=== PATIENT | male | born 1970 ===

== ENCOUNTER 2020-07-30 10:08 | Emergency (ER) | payer OTHER, SELFPAY ==
[2020-07-30 11:10] VITALS: BP 148/108; PULSE 94; RESP 16; TEMP 36.8; O2SAT 97; BMI 27.1
--- NOTE | 2020-07-30 11:20 | XR_ITS ---
EXAMINATION: XR CHEST CLINICAL INFORMATION: Shortness of breath at night. COMPARISON: None TECHNIQUE: Frontal view of the chest was obtained. FINDINGS: The lungs are clear. The cardiomediastinal silhouette is normal in size. There is no pleural effusion or pneumothorax. No acute osseous abnormality. XR/XR chest 1V IMPRESSION: No acute cardiopulmonary findings.
--- NOTE | 2020-07-30 11:42 | ED_ITS ---
HPI - General Adult General Chief complaint: General Medical Stated complaint: stuffy nose Time Seen by Provider: 07/30/20 11:20 Source: patient Mode of arrival: ambulatory History of Present Illness HPI narrative: 49-year-old male with a past medical history of hypertension presenting to the ED complaining of sinus congestion, ear pressure, and SOB at night worsening over the past 4 days. Reports shortness breath at night x years, is supposed to have CPAP machine however lost insurance and has been unable to get another appointment with PCP. Admits now has insurance again and has appointment with PCP in 2 weeks. Denies cough, fever, chills, chest pain, recent travel, history blood clots Onset (ago): day(s) Related Data Previous Rx's Medication Instructions Recorded amlodipine 10 mg tablet 10 mg PO DAILY #30 tab 06/17/20 metoprolol succinate 25 mg 25 mg PO DAILY #30 tab 06/17/20 tablet,extended release 24 hr albuterol sulfate 2 puff INHALATION Q4-6H PRN #6.7 g 07/30/20 fluticasone propionate [Flonase 2 spray INTRANASAL DAILY #9.9 ml 07/30/20 Allergy Relief] Allergies Allergy/AdvReac Type Severity Reaction Status Date / Time No Known Allergies Allergy Verified 07/23/20 13:18 Review of Systems Review of Systems: Constitutional: No Weight loss, No Fever, No Chills ENT/Mouth: + Ear Pain, + Nasal Congestion, + Sinus Pain, No Hoarseness, No sore throat, No Rhinorrhea, No Swallowing Difficulty Cardiovascular: No Chest Pain, + SOB, +orthopnea Respiratory: No Cough, No Sputum, No Wheezing Musculoskeletal: No joint pain, No Myalgias, No Joint Swelling Skin: No Skin Lesions, No rash Yes all other systems are reviewed and are negative PMF Past Medical History Attestation statement: The following information was validated with the patient. Medical History (Updated 07/30/20 @ 11:51 by KAVITA Kinney) HTN (hypertension) Surgical History Status post excision of lipoma Family History Family History (Updated 07/23/20 @ 13:19 by SEE Wood) Father Stroke Mother Hypertension Social History Social History Advance Directives: No Advance Directives Information Provided: No Physical Exam Vital Signs: Vital Signs: Last Vital Signs Temp 98.2 F 07/30/20 11:10 Pulse 94 07/30/20 11:10 Resp 16 07/30/20 11:10 BP 148/108 H 07/30/20 11:10 Pulse Ox 97 07/30/20 11:10 Body Mass Index 27.1 Const: General: cooperative and healthy appearing Orientation/consciousness: patient oriented x3 Limitations: no limitations HENMT: Head: Yes normal to inspection Ears: hearing grossly normal bilaterally and TM's normal bilaterally General nose exam: Normal external nose present and Normal septum present Face and sinus: Yes normal facial exam, Yes sinuses nontender and Yes face symmetric Eyes: General: appearance normal, both eyes and all related structures EOM: EOMs intact bilaterally Neck: Neck: Yes normal visual inspection and Yes no meningeal signs Resp: Effort & Inspection: normal respiratory effort Auscultation: clear to auscultation bilaterally, no rales, no rhonchi and no wheezes Cardio: Rate: regular rate Heart sounds: S1 normal heart sound present and S2 normal heart sound present Skin: Rashes: no rashes Wounds: no wounds Neuro: General: patient oriented x3 and no meningeal signs Gait exam (Neuro): Normal gait present Extrem: General: Yes normal to inspection Course Course Course Narrative: * Chest x-ray unremarkable. Discussed with patient needs close follow-up with his PCP in need CPAP machine as this is likely cause of all of his symptoms. Medical Decision Making MDM Narrative Medical decision making narrative: On exam hypertensive, NAD/nontoxic appearing, lungs CTA. Concern for sleep apnea and noncompliance with CPAP due to insurance issues. TMs WNL. Will obtain chest x-ray, and discussed with patient at length need to follow-up with PCP Discharge Plan Discharge Clinical Impression: Apnea, sleep Qualifiers: Sleep apnea type: unspecified type Qualified Code(s): G47.30 - Sleep apnea, unspecified Patient Disposition: Home, Self-Care Instructions: Sleep Apnea (DC) Additional Instructions: Your x-ray was unremarkable today. Use albuterol inhaler at home for shortness of breath/wheezing. Flonase will help clear sinuses. You need to follow-up with her primary care doctor soon as possible, you need her CPAP machine. Follow-up with sleep medicine for sleep studies. If her symptoms persist or worsen you have chest pain, fever, cough return to the ED Tu radiograf?a hoy no tuvo nada especial. Use un inhalador de albuterol en casa para la dificultad para respirar / sibilancias. Flonase ayudar? a despejar los senos nasales. Necesita hacer un seguimiento con walker m?dico de atenci?n primaria lo antes posible, necesita walker m?quina CPAP. Seguimiento con medicamentos para dormir para estudios del mona?o. Si yoshi s?ntomas persisten o empeoran, tiene dolor en el pecho, robert, darell vuelve al servicio de urgencias Prescriptions: New fluticasone propionate [Flonase Allergy Relief] 50 mcg/actuation spray,suspension 2 spray intranasal DAILY Qty: 9.9 RF: 0 albuterol sulfate 90 mcg/actuation HFA aerosol inhaler 2 puff inhalation Q4-6H PRN (Reason: shortness of breath or wheezing) Qty: 6.7 RF: 0 No Action amlodipine 10 mg tablet 10 mg PO DAILY Qty: 30 RF: 5 metoprolol succinate 25 mg tablet extended release 24 hr 25 mg PO DAILY Qty: 30 RF: 5 Referrals: Delicia Younger MD [Physician] - 2 days Bree Walden FNP [Nurse Practitioner] - 2 days
== END 2020-07-30 12:19 | disposition home or self-care (01) ==
PROVIDERS: Emergency Provider Emergency Medicine Emergency Medical Services; PCP Internal Medicine
DX: G47.30 Sleep apnea, unspecified (principal); Z79.899 Other long term (current) drug therapy
CPT/HCPCS: 71045; 99283

== ENCOUNTER → 2020-08-26 09:40 | Outpatient (REF) | payer OTHER, SELFPAY ==
[2020-08-26 10:39] LABS: MANUAL DIFF FLAG NO
[2020-08-26 10:43] LABS: Basophils Absolute Auto 0.1 X10*3/uL (0.0-0.2); Basophils Percent Auto 0.7 % (0-2); Eosinophils Absolute Auto 0.2 X10*3/uL (0.0-0.4); Hematocrit 43.5 % (42-52); Hemoglobin 14.7 g/dl (14.0-18.0); Imm Gran Abs Auto 0.05 X10*3/uL (0.00-0.03); Imm Gran Pct Auto 0.7 % (0.0-0.4); Lymphocytes Absolute Auto 2.7 X10*3/uL (1.2-4.9); Lymphocytes Percent Auto 37.6 % (20-40); Mean Corpuscular HGB Conc 33.8 g/dl (31.0-36.0); Mean Corpuscular Hemoglobin 30.3 pg (27.0-33.0); Mean Corpuscular Volume 89.7 fL (80-98); Mean Platelet Volume 10.9 fL (9.4-12.4); Monocytes Absolute Auto 0.7 X10*3/uL (0.1-1.2); Monocytes Percent Auto 9.3 % (2-11); Neutrophils Absolute Auto 3.5 X10*3/uL (2.0-8.3); Neutrophils Percent Auto 48.7 % (45-73); Platelet Count 201 X10*3/uL (160-400); Red Blood Count 4.85 X10*6/uL (4.60-5.80); White Blood Count 7.1 X10*3/uL (4.8-10.8)
[2020-08-26 11:27] LABS: Alanine Aminotransferase 17 U/L (0-40); Albumin Level 4.5 g/dL (3.5-5.0); Alkaline Phosphatase 103 U/L (39-117); Anion Gap 12 (12-20); Aspartate Amino Transferase 22 U/L (5-37); Bilirubin Total 0.8 mg/dL (0.0-1.0); Blood Urea Nitrogen 11 mg/dL (9-16); Calcium 9.1 mg/dL (8.4-10.2); Carbon Dioxide 27 mmol/L (22-29); Chloride 105 mmol/L (96-108); Cholesterol 155 mg/dL; Estimated Glomerular Filt Rate > 60; Glucose Random 93 mg/dL (60-115); HDL Cholesterol 37 mg/dL; LDL Cholesterol Calculated 79 mg/dl; Sodium 140 mmol/L (135-145); Total Protein 7.8 g/dL (6.5-8.0); Triglycerides 196 mg/dL
[2020-08-26 11:34] LABS: Thyroid Stimulating Hormone 1.21 uIU/mL (0.32-4.0)
[2020-08-26 11:39] LABS: Folate 18.1 ng/mL (> or = 4.0); Vitamin B12 579 pg/mL (200-900)
[2020-08-26 12:00] LABS: Prostate Specific Antigen Scr 1.03 ng/mL (<0.05-4.0)
== END ==
LOC: HO.SL 09:40
PROVIDERS: PCP Internal Medicine; Visit Provider Internal Medicine
DX: G47.33 Obstructive sleep apnea (adult) (pediatric) (principal); E78.00 Pure hypercholesterolemia, unspecified; I10 Essential (primary) hypertension; R35.0 Frequency of micturition; N40.1 Benign prostatic hyperplasia with lower urinary tract symptoms
CPT/HCPCS: 36415; 80053; 80061; 82607; 82746; 84153; 84439; 84443; 85025; 95806

== ENCOUNTER 2020-09-06 09:08 | Outpatient (REF) | payer OTHER, SELFPAY ==
--- NOTE | 2020-09-09 09:44 | MHC.AU.P13 ---
Adult Audiological Evaluation Date of Visit: 09/06/20 Saxophone Player Used: Ivorian- In Person Reason for Appointment: Patient has long-standing history of tinnitus. He reports the tinnitus is particularly bothersome at nighttime. Per previous report, patient feels the tinnitus began after falling and hitting the back of his head as a child. There has also been history of migraines and headaches that seem to exacerbate the tinnitus. Patient had an audiological evaluation at this clinic on 11/15/2014, which revealed normal/mild sloping to moderately-severe sensorineural hearing loss bilaterally, with the right ear slightly worse than the left. He did not feel he was ready for amplification at that time. History of right tympanic membrane perforation from a cotton swab, which has since healed. Ear History: Recent Ear Drainage: None Reported Recent Ear Pain: None Reported Family History of Hearing Loss?: Yes History of Ear Wax Buildup: None Reported Bothersome Tinnitus/Ringing/Noises in Ears: Both Ears History of occupational noise exposure?: Yes Otoscopy: Right Ear: Unremarkable Left Ear: Unremarkable Tympanometry: Tympanometry performed due to: Prior history of tympanic membrane perforation Right Ear: Normal Middle Ear System (Type A) Left Ear: Normal Middle Ear System (Type A) Hearing Evaluation: Transducer(s) Used: Insert Earphones Method: Conventional Audiometry Stimuli Used: Pure Tones Right Ear: Description of Hearing: Mild sloping to severe sensorineural hearing loss Left Ear: Description of Hearing: Mild sloping to severe sensorineural hearing loss Speech Recognition Threshold (SRT): Method Used: Recorded Lists Stimuli Used: Right Ear: 45 dbHL Left Ear: 40 dBHL Word Discrimination: Method: Recorded Lists Word Lists Used: Lista Bisil?bica (Ivorian) Right Ear: 100% at 85 dBHL Left Ear: 100% at 80 dBHL Comparison: Compared to the most recent evaluation: Thresholds have decreased bilaterally. Recommendations: Audiological re-evaluation in one year. Trial with amplification is recommended. Medical clearance from a physician is required before fitting. Hearing Aid Fitting will be scheduled when all materials arrive. See Hearing Aid Evaluation report for more information. Diagnosis: Primary Diagnosis: H90.3 Bilateral Sensorineural Hearing Loss Services Performed: Services Performed: Comprehensive Audiological Evaluation (CPT 01150), Tympanometry (CPT 32051) Signature: Provider: Annel Zayas, [facility]
--- NOTE | 2020-09-09 09:45 | MHC.AU.P13 ---
Hearing Aid Evaluation- Binaural Date of Visit: 09/06/20 Aircraft Body Repairer Used: Maltese- In Person Description of Hearing: Mild to severe sensorineural hearing loss bilaterally, slightly worse in the right ear Additional Information: Patient's primary complaint is tinnitus. He has experienced tinnitus since childhood and finds it bothersome at times. Since his last evaluation in 2014, his thresholds have decreased. He feels he is ready to try amplification. Hearing Instrument Selection: Right Ear: Senior Sales Director: Phonak Model: Audeo P70-R Battery Size: Rechargeable Color: Black Phd Intern: 1M Left Ear: Senior Sales Director: Phonak Model: Audeo P7-R Battery Size: Rechargeable Color: Black Phd Intern: 1M Plan: Action Taken/Action Needed: Medical Clearance to be requested from PCP/ENT Hearing Fitting to be scheduled when materials arrive Diagnosis Code(s): Primary Diagnosis: H90.3 Bilateral Sensorineural Hearing Loss Signature: Provider: Annel Zayas, [facility]
--- NOTE | 2020-09-09 09:46 | MHC.AU.MED ---
Medical Clearance for Hearing Instrumentation Date: 09/09/20 Patient Name: Clive Mir Date of : 1970 Primary Care Provider: Referring Provider: Anabella Finch MD We have seen your patient on 09/06/20 and have determined that they are a candidate for amplification (See accompanying report). Specifically, they would benefit from: Hearing aid use in both ears There is a statute that addresses Medical Evaluation Requirements prior to fitting a patient with a hearing aid. According to [place] statute 265 CMR:6.03(1), (a) General. Except as provided in 265 CMR 6.03(1)(b), a fourdrinier machine operator shall not sell a hearing aid unless the prospective user has presented to the fourdrinier machine operator a written statement signed by a licensed physician that states that the patient's hearing loss has been medically evaluated and the patient may be considered a candidate for a hearing aid. The medical evaluation must have taken place within the preceding six months. Please note: Due to the [place] Statute referenced above, we cannot accept a signature other than that of a licensed physician. FILLER PICKER and PA signatures cannot be accepted. I am in agreement with the above recommendation. There is no medical contraindication for hearing instrumentation. Physician Signature Date Physician Name (Printed)
--- NOTE | 2020-09-09 09:48 | MHC.AU.P13 ---
Adult Audiological Evaluation Date of Visit: 09/06/20 Biztalk Consultant Used: Syrian- In Person Reason for Appointment: Patient has long-standing history of tinnitus. He reports the tinnitus is particularly bothersome at nighttime. Per previous report, patient feels the tinnitus began after falling and hitting the back of his head as a child. There has also been history of migraines and headaches that seem to exacerbate the tinnitus. Patient had an audiological evaluation at this clinic on 11/15/2014, which revealed normal/mild sloping to moderately-severe sensorineural hearing loss bilaterally, with the right ear slightly worse than the left. He did not feel he was ready for amplification at that time. History of right tympanic membrane perforation from a cotton swab, which has since healed. Ear History: Recent Ear Drainage: None Reported Recent Ear Pain: None Reported Family History of Hearing Loss?: Yes History of Ear Wax Buildup: None Reported Bothersome Tinnitus/Ringing/Noises in Ears: Both Ears History of occupational noise exposure?: Yes Otoscopy: Right Ear: Unremarkable Left Ear: Unremarkable Tympanometry: Tympanometry performed due to: Prior history of tympanic membrane perforation Right Ear: Normal Middle Ear System (Type A) Left Ear: Normal Middle Ear System (Type A) Hearing Evaluation: Transducer(s) Used: Insert Earphones Method: Conventional Audiometry Stimuli Used: Pure Tones Right Ear: Description of Hearing: Mild sloping to severe sensorineural hearing loss Left Ear: Description of Hearing: Mild sloping to severe sensorineural hearing loss Speech Recognition Threshold (SRT): Method Used: Recorded Lists Stimuli Used: Right Ear: 45 dbHL Left Ear: 40 dBHL Word Discrimination: Method: Recorded Lists Word Lists Used: Lista Bisil?bica (Syrian) Right Ear: 100% at 85 dBHL Left Ear: 100% at 80 dBHL Comparison: Compared to the most recent evaluation: Thresholds have decreased bilaterally. Recommendations: Audiological re-evaluation in one year. Trial with amplification is recommended. Medical clearance from a physician is required before fitting. Hearing Aid Fitting will be scheduled when all materials arrive. See Hearing Aid Evaluation report for more information. Diagnosis: Primary Diagnosis: H90.3 Bilateral Sensorineural Hearing Loss Services Performed: Services Performed: Comprehensive Audiological Evaluation (CPT 16547), Tympanometry (CPT 73107) Signature: Provider: Annel Zayas, [facility]
== END 2020-09-06 09:09 | disposition home or self-care (01) ==
LOC: HO.SH 09:08
PROVIDERS: Visit Provider Internal Medicine
DX: Z46.1 Encounter for fitting and adjustment of hearing aid (principal); H90.3 Sensorineural hearing loss, bilateral
CPT/HCPCS: 92557; 92567; 92591

== ENCOUNTER → 2020-09-10 14:28 | Outpatient (BNVA) | payer OTHER, SELFPAY | PROVIDERS: PCP Internal Medicine; Visit Provider Internal Medicine | DX: J30.9 Allergic rhinitis, unspecified (principal); J45.909 Unspecified asthma, uncomplicated; G47.33 Obstructive sleep apnea (adult) (pediatric) | CPT/HCPCS: 99202 ==

== ENCOUNTER → 2020-09-18 12:47 | Outpatient (BNVA) | payer OTHER, SELFPAY | PROVIDERS: PCP Internal Medicine; Visit Provider Physician Assistant ==

== ENCOUNTER → 2020-10-08 14:41 | Outpatient (BNVA) | payer OTHER, SELFPAY | PROVIDERS: PCP Internal Medicine; Visit Provider Internal Medicine | DX: J45.909 Unspecified asthma, uncomplicated (principal); G47.33 Obstructive sleep apnea (adult) (pediatric); Z79.51 Long term (current) use of inhaled steroids | CPT/HCPCS: 99212 ==

== ENCOUNTER 2020-10-11 14:17 | Outpatient (REF) | payer OTHER, SELFPAY ==
--- NOTE | 2020-10-14 09:02 | MHC.AU.HFA ---
Hearing Instrument Fitting- Adult- Binaural Date of Visit: 10/11/20 Bit Grinder Used: Syriac- By Phone (In-person spanish interpreter/translator was originally requested, but was unavailable at the time of the appointment) Hearing Instruments Dispensed: Right Ear: Rod And Tube Straightener: Phonak Model: Audeo P70-R Serial Number: [id number] Repair Warranty: 12/09/2023 Loss and Damage Warranty: 12/09/2023 Battery Size: Rechargeable Color: Black Wheel Mill Operator: 1M Type of Dome: Medium Vented Type of Wax Guard: CeruShield Left Ear: Rod And Tube Straightener: Phonak Model: Audeo P7-R Serial Number: [id number] RepairWarranty: 12/09/2023 Loss and Damage Warranty: 12/09/2023 Battery Size: Rechargeable Color: Black Wheel Mill Operator: 1M Type of Dome: Medium Vented Type of Wax Guard: CeruShield Summary of Fitting: Feedback applications manager was run. Verifit performed and levels adjusted to better reach thresholds. At first, [employer] had recommended a power dome on the right ear and vented dome on the left. Patient reported that the right ear sounded different, and more powerful, than the left, and adjustments did not seem to make a difference. Switched the right power dome for a vented dome, and patient reported significant improvement in sound. Target gain set to 90%, as patient felt 100% was too strong. Patient was pleased with the sound of the instruments. He also reported that he could hardly hear his tinnitus with the instruments on. In the future if tinnitus worsens, we can consider a tinnitus masking program, but for now, it was not needed. Hearing aid care and use were discussed and demonstrated. Hearing aids were paired to his phone. Recommendations: A hearing instrument follow-up was scheduled. Please call our clinic with any questions or concerns. Diagnosis Code(s): Primary Diagnosis: H90.3 Bilateral Sensorineural Hearing Loss Secondary Diagnosis: H93.13 Tinnitus, Bilateral Signature: Provider: Annel Zayas, [facility]
== END 2020-10-11 14:18 | disposition home or self-care (01) ==
LOC: HO.HAP 14:17
PROVIDERS: Visit Provider Internal Medicine
DX: Z46.1 Encounter for fitting and adjustment of hearing aid (principal); H90.3 Sensorineural hearing loss, bilateral; H93.13 Tinnitus, bilateral
CPT/HCPCS: V5011; V5020; V5160; V5261

== ENCOUNTER 2020-10-30 15:41 | Outpatient (REF) | payer OTHER, SELFPAY | END 2020-10-30 15:42 | disposition home or self-care (01) | LOC: HO.HAP 15:41 | PROVIDERS: Visit Provider Internal Medicine | DX: Z13.89 Encounter for screening for other disorder (principal) ==

== ENCOUNTER → 2020-11-12 15:41 | Outpatient (BNVA) | payer OTHER, SELFPAY | PROVIDERS: PCP Internal Medicine; Visit Provider Internal Medicine | DX: J45.20 Mild intermittent asthma, uncomplicated (principal); G47.33 Obstructive sleep apnea (adult) (pediatric); J30.9 Allergic rhinitis, unspecified; Z79.899 Other long term (current) drug therapy | CPT/HCPCS: 99212 ==

== ENCOUNTER 2020-11-20 07:46 | Day surgery (SDC) | payer OTHER, SELFPAY ==
[2020-11-12 09:21] VITALS: BMI 29.0
--- NOTE | 2020-11-19 10:15 | HO.ANESPROP2 ---
Documented by User: Mattie Everett 11/19/20 10:16 HPI - Anesthesia Eval Consult details Narrative: 49yo M for Colonoscopy PMFSH Active Problems Active Problems: All Active Problems (Updated 11/12/20 @ 16:17 by Danny De La Rosa MD) Annual physical exam (Acute) Tinnitus (Acute) Colon cancer screening (Acute) Allergic rhinitis (Acute) Asthma (Acute) Anxiety and depression (Acute) BPH (benign prostatic hyperplasia) (Acute) Obstructive sleep apnea (Acute) GERD (gastroesophageal reflux disease) (Acute) HTN (hypertension) (Acute) Past Medical History Medical History Anxiety and depression Asthma BPH (benign prostatic hyperplasia) COVID-19 vaccine administered Erectile dysfunction GERD (gastroesophageal reflux disease) HTN (hypertension) Obstructive sleep apnea Right renal stone Vitamin D deficiency Family History Family History Father Stroke Alcohol abuse Myocardial infarct Mother Hypertension Surgical History Surgical History Hx of lithotripsy Status post excision of lipoma Social History Social History Household Members: Significant Other Are you a primary senior care assistant to a significant other at home: No Do you presently have visiting nurse or other home services: No Alcohol intake: current Alcohol intake frequency: a few times a month Smoking Status: Never smoker Use of substances other than those prescribed or required for medical reasons: Yes Substance Use Type: Marijuana Are you DNR?: No Advance Directives Information Provided: No Recently lost weight without trying: No Eating poorly because of decreased appetite: No Nutrition Risks: No Nutritional Risk Current occupational status: unemployed Meds Allergies Allergy/AdvReac Type Severity Reaction Status Date / Time No Known Allergies Allergy Verified 11/20/20 08:35 Home Medications Medication Instructions Recorded Confirmed Last Taken Type blood pressure test kit-large #1 ea 09/10/20 11/04/20 Unknown History Exam Exam Date and Time: November 19, 2020 1015 Height,Weight and Vital Signs: Height 5 ft 11 in Weight 94.5 kg Assessment and Plan Assessment Anesthesia Assessment: Chart Reviewed Documented by User: Kasie Allenmayo 11/20/20 09:26 PMFSH Past Medical History Medical History Anxiety and depression Asthma BPH (benign prostatic hyperplasia) COVID-19 vaccine administered Erectile dysfunction GERD (gastroesophageal reflux disease) HTN (hypertension) Obstructive sleep apnea Right renal stone Vitamin D deficiency Family History Family History Father Stroke Alcohol abuse Myocardial infarct Mother Hypertension Surgical History Surgical History Hx of lithotripsy Status post excision of lipoma Social History Social History Household Members: Significant Other Are you a primary senior care assistant to a significant other at home: No Do you presently have visiting nurse or other home services: No Alcohol intake: current Alcohol intake frequency: a few times a month Smoking Status: Never smoker Use of substances other than those prescribed or required for medical reasons: Yes Substance Use Type: Marijuana Are you DNR?: No Advance Directives Information Provided: No Recently lost weight without trying: No Eating poorly because of decreased appetite: No Nutrition Risks: No Nutritional Risk Current occupational status: unemployed Meds Allergies Allergy/AdvReac Type Severity Reaction Status Date / Time No Known Allergies Allergy Verified 11/20/20 08:35 Home Medications Medication Instructions Recorded Confirmed Last Taken Type blood pressure test kit-large #1 ea 09/10/20 11/04/20 Unknown History Exam Airway Mallampati Class: II (Missing muliple) TM Dist: >3cm Neck ROM: Full Heart: RRR Lungs: CTA Assessment and Plan Assessment Anesthesia Assessment: Anesthesia Plan Discussed and Chart Reviewed Final Anesthetic Review NPO: Yes ASA Class: III Final Preanesthetic Review: No Changes in Pt Med Stat and Consent Obtained/Reviewed Patient Risk: Intermediate Procedure Risk: Intermediate Anesthetic Plan Anesthetic Plan: MAC: Disposition: Standard PACU
[2020-11-20 08:39] VITALS: BP 128/91; PULSE 93; RESP 20; TEMP 36.5; O2SAT 97
[2020-11-20] MEDS: Lactated Ringers 1,000 ML 100 ML IVCONT (08:50)
[2020-11-20] MEDS: Sodium Phosphate,Mono-Dibasic 133 ML ENEMA PR ×2 (08:51→09:02)
--- NOTE | 2020-11-20 08:56 | MHC.SHP ---
Pre-Procedural Eval Section B Chief Complaint: Screening Relevant Family History (Specify if Yes): No Relevant Social History: Other (specify) (THC) Present Medications: see Short Stay Collaborative assessment Medical History: Significant History (Anxiety and depression Asthma BPH (benign prostatic hyperplasia) COVID-19 vaccine administered Erectile dysfunction GERD (gastroesophageal reflux disease) HTN (hypertension) Obstructive sleep apnea Right renal stone Vitamin D deficiency) History of Previous Operations: Relevant previous surgery/procedure and date(s) (Hx of lithotripsy Status post excision of lipoma) Allergies: Allergies Allergy/AdvReac Type Severity Reaction Status Date / Time No Known Allergies Allergy Verified 11/20/20 08:35 Review of Systems Sugical H&P ROS: Negative: Constitution, Cardiovascular, Respiratory, Neurological, Psychiatric, Hem-Onc, Allergic/Immunologic, Gastrointestinal, Genitourinary, Musculoskeletal, Integumentary, Endocrine and Eyes/Ears/Nose/Throat Exam Surgical H&P Exam: Normal: HEENT, Normal: Heart, Normal: Lungs, Normal: Extremities, Normal: Abdomen, Normal: Skin and Normal: Neurological Plan Diagnosis/Plan: Unchanged I have reviewed the history and physical and performed a pertinent physical examination on my patient. No changes have occurred unless specified.
--- NOTE | 2020-11-20 08:58 | P.OP_ITS ---
Operative Note Operative Note Date of Service: 11/20/20 Narrative: Operative Information Procedure Description: Colonoscopy COLONOSCOPY Instrument: Olympus variable stiffness pediatric scope 190L Colonoscopy Monitoring: Vital signs and clinical assessment, continuous EKG monitoring, Pulse oximetry, Carbon Dioxide monitoring and blood pressure monitoring were done throughout the procedure. Colon withdrawal time was 6 minutes. Procedure: The patient was placed in the left lateral decubitis position and pre-procedure medications were administered. After a digital rectal examination of the ano-rectum, the video colonoscope was inserted into the rectum and advanced through the colon to the cecum/TI. The colonoscope was slowly withdrawn in a retrograde panoramic fashion and the colon mucosa was carefully examined including a retroflexed view of the rectum. Findings and interventions are described below. Procedure Difficulty:easy Findings: Terminal Ileum-normal Cecum:normal Ascending Colon: normal Transverse Colon -normal Descending Colon:normal Sigmoid Colon: moderate diverticulosis with small to mid sized diverticula seen Rectum: Retroflexion with moderate sized internal hemorrhoids, grade I Anorectum - normal Colon preparation: [place] Bowel Preparation Scale Right colon; 3 Transverse colon: 3 Left colon; 3 (0 = Unprepared colon segment with mucosa not seen due to solid stool that cannot be cleared. 1 = Portion of mucosa of the colon segment seen, but other areas of the colon segment not well seen due to staining, residual stool and/or opaque liquid. 2 = Minor amount of residual staining, small fragments of stool and/or opaque liquid, but mucosa of colon segment seen well. 3 = Entire mucosa of colon segment seen well with no residual staining, small fragments of stool or opaque liquid) Impression and Post Procedure Diagnosis: internal hemorrhoids diverticular disease Plan: High fiber diet leaflet Avoid straining at stool, epsom salts and sitz bath, anusol supps or cream Repeat Colonoscopy in 10 years or earlier if clinically indicated Above findings were reviewed with the patient and relevant handouts were provided if indicated.
--- NOTE | 2020-11-20 08:58 | PM.OP ---
Brief Operative Note Date of Service: 11/20/20 Pre-op diagnosis: colon screening Post-op diagnosis: same Procedure: see op note Surgeon: Robert Sparrow MD Anesthesia: MAC Was an Freelance Digital Project Manager used for this Procedure?: No Estimated blood loss (mL): 0 Condition: stable Disposition: PACU
[2020-11-20 09:40] VITALS: BP 130/96; PULSE 75; RESP 13; TEMP 36.1; O2SAT 98
[2020-11-20 09:55] VITALS: BP 142/107; PULSE 65; RESP 18; O2SAT 99
--- NOTE | 2020-11-20 16:22 | PC.NURSE ---
1000 AWAKE ALERT MYRA PO, PT STS WILL TAKE BP MEDS WHEN HE GETS HOME TAKES LISINOPRIL, MONITORS AND IVF DCD ASST OOB CH STEADY IV DCD DRESSED SELF AT BS CALL ETIENNE IN REACH
== END 2020-11-20 11:00 | disposition home or self-care (01) ==
PROVIDERS: PCP Internal Medicine; Visit Provider Internal Medicine Gastroenterology
PROC: 0DJD8ZZ Inspection of Lower Intestinal Tract, Via Natural or Artificial Opening Endoscopic (ICD-10-PCS; CPT 45378; principal; 2020-11-20 09:10)
DX: Z12.11 Encounter for screening for malignant neoplasm of colon (principal); K57.30 Diverticulosis of large intestine without perforation or abscess without bleeding; K64.0 First degree hemorrhoids; K21.9 Gastro-esophageal reflux disease without esophagitis; I10 Essential (primary) hypertension; J45.20 Mild intermittent asthma, uncomplicated; G47.33 Obstructive sleep apnea (adult) (pediatric); F12.90 Cannabis use, unspecified, uncomplicated; Z79.51 Long term (current) use of inhaled steroids; Z79.899 Other long term (current) drug therapy
CPT/HCPCS: 45378

== ENCOUNTER → 2021-01-15 15:43 | Outpatient (BNVA) | payer OTHER, SELFPAY | PROVIDERS: PCP Internal Medicine; Visit Provider Internal Medicine | DX: G47.33 Obstructive sleep apnea (adult) (pediatric) (principal); J45.20 Mild intermittent asthma, uncomplicated; J30.9 Allergic rhinitis, unspecified | CPT/HCPCS: 99212 ==

== ENCOUNTER → 2021-03-12 15:25 | Outpatient (BNVA) | payer OTHER, SELFPAY | PROVIDERS: PCP Internal Medicine; Visit Provider Internal Medicine | DX: J30.9 Allergic rhinitis, unspecified (principal); J45.20 Mild intermittent asthma, uncomplicated; G47.33 Obstructive sleep apnea (adult) (pediatric); I10 Essential (primary) hypertension; E55.9 Vitamin D deficiency, unspecified | CPT/HCPCS: 99212 ==

== ENCOUNTER 2021-09-04 08:19 | Outpatient (REF) | payer OTHER, SELFPAY ==
[2021-09-04 08:46] LABS: MANUAL DIFF FLAG NO
[2021-09-04 09:50] LABS: Basophils Percent Auto 0.7 % (0-2); Eosinophils Absolute Auto 0.2 X10*3/uL (0.0-0.4); Hematocrit 40.8 % (42.0-52.0); Hemoglobin 13.4 g/dl (14.0-18.0); Imm Gran Abs Auto 0.01 X10*3/uL (0.00-0.03); Imm Gran Pct Auto 0.2 % (0.0-0.4); Lymphocytes Absolute Auto 2.3 X10*3/uL (1.2-4.9); Lymphocytes Percent Auto 39.2 % (20-40); Mean Corpuscular HGB Conc 32.8 g/dl (31.0-36.0); Mean Corpuscular Hemoglobin 30.5 pg (27.0-33.0); Mean Corpuscular Volume 92.9 fL (80.0-98.0); Mean Platelet Volume 11.3 fL (9.4-12.4); Monocytes Absolute Auto 0.6 X10*3/uL (0.1-1.2); Monocytes Percent Auto 10.1 % (2-11); Neutrophils Absolute Auto 2.7 x10*3/uL (2.0-8.3); Neutrophils Percent Auto 45.8 % (45-73); Platelet Count 182 X10*3/uL (160-400); Red Blood Count 4.39 X10*6/uL (4.60-5.80); Red Cell Distribution Width 13.4 % (11.0-16.0); White Blood Count 5.9 X10*3/uL (4.8-10.8)
[2021-09-04 10:14] LABS: Appearance Urine CLEAR; Color Urine YELLOW; Glucose Urine UA NEG (NEG); Leukocyte Esterase Urine NEG (NEG); Nitrite Urine NEG (NEG); Specific Gravity - Urine >= 1.030 (1.005-1.025); Urine Blood NEG (NEG); Urine Ketones NEG (NEG); Urine Protein NEG (NEG-TRACE)
[2021-09-04 10:27] LABS: Alanine Aminotransferase 18 U/L (0-40); Albumin Level 4.3 g/dL (3.5-5.0); Alkaline Phosphatase 93 U/L (39-117); Anion Gap 11 (12-20); Aspartate Amino Transferase 25 U/L (5-37); Bilirubin Total 0.5 mg/dL (0.0-1.0); Blood Urea Nitrogen 16 mg/dL (9-16); Calcium 9.3 mg/dL (8.4-10.2); Carbon Dioxide 28 mmol/L (22-29); Chloride 107 mmol/L (96-108); Cholesterol 160 mg/dL; Estimated Glomerular Filt Rate > 60; Glucose Random 90 mg/dL (60-115); HDL Cholesterol 39 mg/dL; LDL Cholesterol Calculated 99 mg/dl; Potassium 4.3 mmol/L (3.3-5.1); Sodium 142 mmol/L (135-145); Total Protein 7.5 g/dL (6.5-8.0); Triglycerides 111 mg/dL
[2021-09-04 10:51] LABS: Folate 18.9 ng/mL (> or = 4.0); Free T4 (Free Thyroxine) 0.96 ng/dL (0.71-1.85); Prostate Specific Antigen Scr 0.73 ng/mL (<0.05-4.0); Thyroid Stimulating Hormone 1.08 uIU/mL (0.32-4.0); Vitamin B12 593 pg/mL (200-900)
[2021-09-04 11:43] LABS: RBC Urine 0-2 /HPF (0); WBC Urine 0-2 /HPF (0-4)
[2021-09-04 11:44] LABS: Squamous Epithelial Cell Urine TRACE /LPF
== END 2021-09-04 08:20 | disposition home or self-care (01) ==
LOC: HO.LAB 08:19
PROVIDERS: PCP Internal Medicine; Visit Provider Internal Medicine
DX: Z12.5 Encounter for screening for malignant neoplasm of prostate (principal); R35.0 Frequency of micturition; K21.9 Gastro-esophageal reflux disease without esophagitis; E78.00 Pure hypercholesterolemia, unspecified
CPT/HCPCS: 36415; 80053; 80061; 81001; 82607; 82746; 84153; 84439; 84443; 85025

== ENCOUNTER 2022-06-02 15:38 | Outpatient (REF) | payer OTHER, SELFPAY ==
--- NOTE | ~2022-06-02 | US_ITS ---
EXAMINATION: US PELVIS LIMITED (BLADDER) CLINICAL INFORMATION: Increased frequency of urination. COMPARISON: X-ray [facility] 06/28/2018 and 12/28/2017. Renal ultrasound 07/18/2015. CT abdomen and pelvis 06/28/2015. TECHNIQUE: Real-time imaging of the bladder. FINDINGS: BLADDER: Well distended and normal. Bilateral ureteral jets are demonstrated. Prevoid bladder volume is 164 mL. Postvoid bladder volume is 44 mL. ADDITIONAL FINDINGS: Prostate is normal in size at 23.7 mL. US/US bladder IMPRESSION: Normal-appearing bladder with 44 mL postvoid residual.
== END 2022-06-02 15:39 | disposition home or self-care (01) ==
LOC: HO.US 15:38
PROVIDERS: Visit Provider Internal Medicine
DX: R35.0 Frequency of micturition (principal)
CPT/HCPCS: 76857

== ENCOUNTER 2022-10-15 07:51 | Outpatient (REF) | payer OTHER, SELFPAY ==
[2022-10-15 08:00] LABS: MANUAL DIFF FLAG NO
[2022-10-15 08:18] LABS: Basophils Absolute Auto 0.1 X10*3/uL (0.0-0.2); Eosinophils Absolute Auto 0.2 X10*3/uL (0.0-0.4); Eosinophils Percent Auto 4.1 % (0-4); Hematocrit 44.2 % (42.0-52.0); Hemoglobin 14.9 g/dl (14.0-18.0); Imm Gran Abs Auto 0.02 X10*3/uL (0.00-0.03); Imm Gran Pct Auto 0.3 % (0.0-0.4); Immature Retic Fraction 10.8 % (2.3-13.4); Lymphocytes Absolute Auto 2.8 X10*3/uL (1.2-4.9); Lymphocytes Percent Auto 46.8 % (20-40); Mean Corpuscular HGB Conc 33.7 g/dl (31.0-36.0); Mean Corpuscular Hemoglobin 30.8 pg (27.0-33.0); Mean Corpuscular Volume 91.5 fL (80.0-98.0); Mean Platelet Volume 10.4 fL (9.4-12.4); Monocytes Absolute Auto 0.7 X10*3/uL (0.1-1.2); Monocytes Percent Auto 12.3 % (2-11); Neutrophils Absolute Auto 2.1 x10*3/uL (2.0-8.3); Neutrophils Percent Auto 35.5 % (45-73); Platelet Count 177 X10*3/uL (160-400); Red Blood Count 4.83 X10*6/uL (4.60-5.80); Red Cell Distribution Width 12.6 % (11.0-16.0); Retic HGB Equivalent 36.3 pg (30.0-35.0); Reticulocyte Percent 1.6 % (0.5-1.8); Reticulocytes Absolute 0.078 X10*6/uL (0.026-0.095); White Blood Count 5.9 X10*3/uL (4.8-10.8)
[2022-10-15 08:49] LABS: Alanine Aminotransferase 17 U/L (0-40); Albumin Level 4.3 g/dL (3.5-5.0); Alkaline Phosphatase 107 U/L (39-117); Anion Gap 13 (12-20); Aspartate Amino Transferase 25 U/L (5-37); Bilirubin Total 0.6 mg/dL (0.0-1.0); Blood Urea Nitrogen 13 mg/dL (9-16); Calcium 9.3 mg/dL (8.4-10.2); Carbon Dioxide 28 mmol/L (22-29); Chloride 104 mmol/L (96-108); Cholesterol 156 mg/dL; Estimated Glomerular Filt Rate > 60; Glucose Random 105 mg/dL (60-115); HDL Cholesterol 33 mg/dL; Iron 90 mcg/dL (45-160); LDL Cholesterol Calculated 73 mg/dl; Percent Iron Saturation 30 % (15-50); Potassium 4.3 mmol/L (3.3-5.1); Sodium 141 mmol/L (135-145); Total Iron Binding Capacity 298 mcg/dL (228-428); Total Protein 7.4 g/dL (6.5-8.0); Triglycerides 251 mg/dL; Unsaturated Iron Binding 208 ug/dL
[2022-10-15 09:11] LABS: Ferritin 113 ng/mL (20-250); Free T4 (Free Thyroxine) 1.03 ng/dL (0.71-1.85); Prostate Specific Antigen Scr 1.08 ng/mL (<0.05-4.0); Thyroid Stimulating Hormone 1.13 uIU/mL (0.32-4.0)
== END 2022-10-15 07:52 | disposition home or self-care (01) ==
LOC: HO.LAB 07:51
PROVIDERS: PCP Internal Medicine; Visit Provider Internal Medicine
DX: Z12.5 Encounter for screening for malignant neoplasm of prostate (principal); D64.9 Anemia, unspecified; E78.00 Pure hypercholesterolemia, unspecified; I10 Essential (primary) hypertension
CPT/HCPCS: 36415; 80053; 80061; 82728; 83540; 84153; 84439; 84443; 85025; 85045

== ENCOUNTER 2023-02-08 16:53 | Outpatient (AMB) | payer OTHER, SELFPAY ==
[2023-02-08 16:54] VITALS: BP 120/88; PULSE 97; O2SAT 96; BMI 28.8
--- NOTE | 2023-02-08 16:54 | MHC.PC.OV ---
Vital Signs 02/08/23 16:54 Height 5 ft 11 in Weight 206 lb 4 oz BMI 28.8 BP 120/88 Blood Pressure Location Lt brachial Position Sitting Pulse 97 Pulse Source Pulse Oximeter Pulse Oximetry (%) 96 Oxygen Delivery Method Room Air Intake Visit Reasons: 6m F/U Prescription Eyeglass Maker Required: Yes Accompanied by: Self / Same As Patient Allergies No Known Allergies Allergy (Verified 02/08/23 16:54) Medication List - Last Reconciled 02/08/23 by Anabella Finch MD amlodipine 10 mg PO DAILY [AUTO PAP 6-16 cm H2) humidified Air As directed] blood pressure test kit-large As directed clotrimazole 1% 1 appl topical BID 4 weeks hydrochlorothiazide 12.5 mg PO QAM 90 days metoprolol succinate ER 50 mg PO DAILY 90 days omeprazole 20 mg PO DAILY Tobacco use date assessed: 02/08/23 Dental Screening Dental Screen Date: 02/08/23 Did you have a dental visit in the last 12 months?: No Did you have a dental problem in the last 6 months where you did not have access to dental care?: No Was dental information given to patient?: No HPI 6m F/U HPI Details 52-year-old overweight male with hypertension BPH hypercholesterolemia GERD and impaired glucose tolerance last seen in October 2022 patient is here for follow-up. Colonoscopy is up-to-date patient has obstructive sleep apnea and up-to-date has not received any CPAP. Granted that he had noncompliance before but has since then ask for CPAP. Will try to follow this up. Patient also has a growth on the left leg that has been changing meaning increase in size and has been referred to dermatology but has not had any schedule. Will follow-up on this [facility] Medical History (Updated 02/08/23 @ 17:06 by Anabella Finch MD) Asthma Colon cancer screening COVID-19 vaccine administered Erectile dysfunction GERD (gastroesophageal reflux disease) HTN (hypertension) Obstructive sleep apnea Right renal stone Vitamin D deficiency Surgical History Hx of lithotripsy Status post excision of lipoma Family History Father Stroke Alcohol abuse Myocardial infarct Mother Hypertension Sister Myocardial infarct Social History (Updated 08/11/22 @ 16:40 by Anabella Finch MD) Household Members: Significant Other Housing: Apartment Are you a primary care asst to a significant other at home: No Do you presently have visiting nurse or other home services: No Alcohol intake: current Alcohol intake frequency: a few times a month Patient Tobacco Use Status: Never used Tobacco Years Smoked: marijuana e-Cigarette/Vaping Use: Never Used Second Hand Smoke Exposure: No Substance Use Type: Marijuana Current occupational status: employed Cognitive needs: No Hearing needs: Yes Vision needs: No Questionnaire PHQ-9 Over the last 2 weeks, how often have you been bothered by any of the following problems? 1. Little interest or pleasure in doing things: several days (Mother recently. Going to see the body today. ) 2. Feeling down, depressed, or hopeless: several days 3. Trouble falling or staying asleep, or sleeping too much: not at all 4. Feeling tired or having little energy: not at all 5. Poor appetite or overeating: not at all 6. Feeling bad about yourself - or that you are a failure or have let yourself or your family down: not at all 7. Trouble concentrating on things, such as reading the newspaper or watching television: not at all 8. Moving or speaking so slowly that other people could have noticed. Or the opposite - being so fidgety or restless that you have been moving around a lot more than usual: not at all 9. Thoughts that you would be better off or of hurting yourself in some way: not at all Total score: 2 Depression Screening Interpretation: Positive Source: Developed by Drs. Reynaldo Mcghee, Ivone Gill, Hans Rosado and colleagues, with an educational lamar from [employer]. Thrive Questionnaire Date Thrive assessed: 02/08/23 I am a: Patient What is your living situation today?: I have a steady place to live Within the past 12 months, did the food you bought not last and you didn't have the money to get more?: Never true Within the past 12 months, did you worry whether your food would run out before you got money to buy more?: Never true Do you have trouble paying for medicines?: No Do you have trouble getting transportation to medical appointments?: No Do you have trouble paying your heating and electricity bill?: No Do you have trouble taking care of your child, family member or friend?: No Do you have trouble with day-to-day activities such as bathing, preparing meals, shopping, managing finances, etc.?: No Are you currently unemployed and looking for a job?: No Are you interested in more education?: No Please select the resources that you would like help with: None Currently or been in a relationship where the following occur: no concerns reported AUDIT C Alcohol Use Questionnaire (AUDIT-C) 1. How often do you have a drink containing alcohol?: 2-3 times a week 2. How many drinks containing alcohol do you have on a typical day when you are drinking?: 3 or 4 3. How often do you have six or more drinks on one occasion?: Less than monthly Total Score: 5 DASHA-7 AMB Questionnaire DASHA-7 Date DASHA - 7 assessed: 02/08/23 Feeling nervous, anxious, or on edge: 0 = Not at all Not being able to stop or control worryin = Not at all Worrying too much about different things: 0 = Not at all Trouble relaxin = Not at all Being so restless that it is hard to sit still: 0 = Not at all Becoming easily annoyed or irritable: 0 = Not at all Feeling afraid as if something awful might happen: 0 = Not at all Total DASHA-7 score (0-4 normal; 5-9 mild; 10-14 moderate; 15-21 severe): 0 Source: Developed by Drs. Reynaldo Mcgehe, Ivone Gill, Hans Rosado and colleagues, with an educational lamar from [employer]. Physical exam (Primary Care) Vital Signs: Last Vital Signs Pulse 97 02/08/23 16:54 BP 120/88 02/08/23 16:54 Pulse Ox 96 02/08/23 16:54 Oxygen Delivery Method Room Air 02/08/23 16:54 Care Plan Goal for BP management: Left leg with hyper pigmented keratotic papular rash 1 cm BMI result Body Mass Index 28.8 Tobacco/Smoking Status: Tobacco use Status Tobacco use date assessed 02/08/23 02/08/23 17:00 Patient Tobacco Use Status Never used Tobacco 02/08/23 17:00 e-Cigarette/Vaping Use Never Used 07/24/23 17:00 PHQ-9: PHQ-9 Score PHQ-9: Total score 2 02/08/23 17:02 Depression Screening Interpretation: Positive Thrive Assessment: Date of Thrive Assessment Date Thrive assessed 02/08/23 02/08/23 17:00 Currently or been in a relationship where the following occur: no concerns reported Const General: alert; No acute distress Eyes Conjunctivae: conjunctivae normal Resp Auscultation: clear to auscultation bilaterally Cardio Rate: regular rate Rhythm: regular rhythm GI Inspection: Yes normal to inspection Extrem General: Yes normal to inspection and No edema Assessment and Plan Assessment & Plan (1) Impaired glucose tolerance: Code(s): R73.02 - Impaired glucose tolerance (oral) Plan: Decrease the amount of carbohydrate intake, pasta, bread, rice and potatoes are all sugar and that is aside from all the sweet stuff, remember that fruits are good but they are Sweet also. (2) Hypercholesterolemia: Code(s): E78.00 - Pure hypercholesterolemia, unspecified Plan: Avoid fried foods, chicken skin, eggs, butter margarine, pastries and meat. Be it pork or beef they have a lot of cholesterol LDL goal of less than 130 and triglyceride of less than 150 (3) Asthma: Comment: MILD INTERMITTENT . TX CONT. TO USE ALBUTEROL 2 PUFFS Q 6 HRS PRN Code(s): J45.909 - Unspecified asthma, uncomplicated Qualifiers: Asthma severity: mild Asthma persistence: intermittent Asthma complication type: uncomplicated Qualified Code(s): J45.20 - Mild intermittent asthma, uncomplicated Plan: Stable (4) BPH (benign prostatic hyperplasia): Code(s): N40.0 - Benign prostatic hyperplasia without lower urinary tract symptoms Qualifiers: Lower urinary tract symptom presence: symptoms present Lower urinary tract symptom detail: urinary frequency Qualified Code(s): N40.1 - Benign prostatic hyperplasia with lower urinary tract symptoms; R35.0 - Frequency of micturition Plan: Stable (5) GERD (gastroesophageal reflux disease): Code(s): K21.9 - Gastro-esophageal reflux disease without esophagitis Qualifiers: Esophagitis presence: without esophagitis Qualified Code(s): K21.9 - Gastro-esophageal reflux disease without esophagitis Plan: Avoid the foods that causes that usually spicy foods, tomato products, juices, coffee, soda and foods that your sensitive to. After eating do not lie down, allow 3-4 hours before in lie down. And keep the head of bed above 30 degrees to avoid the acid from going up. (6) HTN (hypertension): Code(s): I10 - Essential (primary) hypertension Qualifiers: Hypertension type: essential hypertension Qualified Code(s): I10 - Essential (primary) hypertension Plan: Continue with hydrochlorothiazide 12.5 mg once a day metoprolol 50 mg once a day and amlodipine 10 mg once a day. Continue with blood pressure medication. Decrease salt intake and exercise (7) Obstructive sleep apnea: Comment: HAS MODERATELY SEVERE OBSTRUCTIVE SLEEP APNEA. HE IS TOTALLY NON COMPLIANT TO THE USE OF CPAP. EDUCATED THROUGH THE USE OF OPERATIONS SUPPORT PROFESSIONALS. ADVISED THAT HE SHOULD USE IT EVERY NIGHT AT LEAST FOR 4-5 HOURS PER NIGHT HE SHOULD USE FLONASE 2 SPRAY IN EACH NOSTRIL EVERY EVENING. AND ALSO USE ATROVENT NASAL SPRAY ONE SPRAY IN EACH NOSTRIL BID HE IS ALSO ADVISED TO CONTINUE LOSING WEIGHT SLOWLY. Code(s): G47.33 - Obstructive sleep apnea (adult) (pediatric) Plan: Continue to lose the weight, discussed importance of using the CPAP every night Medications: New [AUTO PAP 6-16 cm H2) humidified Air] As directed 1 ea 0RF G47.33 - Obstructive sleep apnea (adult) (pediatric) Coding Level of Care Code Est Pt Level 4 (05141) Diagnoses Impaired glucose tolerance R73.02 Hypercholesterolemia E78.00 Asthma J45.20 Asthma severity: mild Asthma persistence: intermittent Asthma complication type: uncomplicated BPH (benign prostatic hyperplasia) N40.1; R35.0 Lower urinary tract symptom presence: symptoms present Lower urinary tract symptom detail: urinary frequency GERD (gastroesophageal reflux disease) K21.9 Esophagitis presence: without esophagitis HTN (hypertension) I10 Hypertension type: essential hypertension Obstructive sleep apnea G47.33
== END 2023-02-08 17:21 | disposition home or self-care (01) ==
PROVIDERS: PCP Internal Medicine; Visit Provider Internal Medicine
DX: J45.20 Mild intermittent asthma, uncomplicated (principal); K21.9 Gastro-esophageal reflux disease without esophagitis; I10 Essential (primary) hypertension; R73.02 Impaired glucose tolerance (oral); E78.00 Pure hypercholesterolemia, unspecified; N40.1 Benign prostatic hyperplasia with lower urinary tract symptoms; R35.0 Frequency of micturition; G47.33 Obstructive sleep apnea (adult) (pediatric)
CPT/HCPCS: 99214

== ENCOUNTER 2023-05-21 15:30 | Outpatient (AMB) | payer OTHER, SELFPAY ==
--- NOTE | 2023-05-21 15:42 | A.OFFPC_ITS ---
Vital Signs 05/21/23 15:45 Height 5 ft 11 in Weight 203 lb 4 oz BMI 28.3 BP 118/92 H Blood Pressure Location Lt brachial Position Sitting Pulse 85 Pulse Source Pulse Oximeter Pulse Oximetry (%) 98 Oxygen Delivery Method Room Air Intake Visit Reasons: Juan Pablo Intake Note: Pt id here for JUAN PABLO and HTN F/U. Leather Shaver Required: No Accompanied by: Self / Same As Patient Allergies No Known Allergies Allergy (Verified 05/21/23 15:53) Tobacco use date assessed: 02/08/23 Dental Screening Dental Screen Date: 05/21/23 Did you have a dental visit in the last 12 months?: No Did you have a dental problem in the last 6 months where you did not have access to dental care?: Yes Was dental information given to patient?: Yes HPI Juan Pablo HPI Details 52-year-old overweight male with a histo ry of impaired glucose tolerance hypercholesterolemia asthma BPH GERD hypertension and obstructive sleep apnea last seen in January 2023 patient is here for follow-up. Colonoscopy is up-to-date Patient's last complete blood work was in September noted to have an elevated cholesterol. Had a long discussion with regards to the sleep apnea as the patient is noncompliant with CPAP. Bernadette rivera [facility] Medical History (Updated 02/08/23 @ 17:06 by Anabella Finch MD) COVID-19 vaccine administered Asthma Colon cancer screening Vitamin D deficiency Obstructive sleep apnea Erectile dysfunction GERD (gastroesophageal reflux disease) Right renal stone HTN (hypertension) Surgical History Hx of lithotripsy Status post excision of lipoma Family History Father Stroke Alcohol abuse Myocardial infarct Mother Hypertension Sister Myocardial infarct Social History Household Members: Significant Other Housing: Apartment Are you a primary care connector to a significant other at home: No Do you presently have visiting nurse or other home services: No Alcohol intake: current Alcohol intake frequency: a few times a month Patient Tobacco Use Status: Never used Tobacco Years Smoked: marijuana e-Cigarette/Vaping Use: Never Used Second Hand Smoke Exposure: No Substance Use Type: Marijuana Current occupational status: employed Cognitive needs: No Hearing needs: Yes Vision needs: No Questionnaire Thrive Questionnaire Date Thrive assessed: 02/08/23 DASHA-7 AMB Questionnaire DASHA-7 Date DASHA - 7 assessed: 02/08/23 Source: Developed by Drs. Reynaldo Mcghee, Ivone Gill, Hans Rosado and colleagues, with an educational lamar from [employer]. Physical exam (Primary Care) Vital Signs: Last Vital Signs Pulse 85 05/21/23 15:45 BP 118/92 H 05/21/23 15:45 Pulse Ox 98 05/21/23 15:45 Oxygen Delivery Method Room Air 05/21/23 15:45 BMI result Body Mass Index 28.3 Tobacco/Smoking Status: Tobacco use Status Tobacco use date assessed 02/08/23 05/21/23 15:43 Patient Tobacco Use Status Never used Tobacco 05/21/23 15:43 e-Cigarette/Vaping Use Never Used 05/21/23 15:43 Thrive Assessment: Date of Thrive Assessment Date Thrive assessed 02/08/23 05/21/23 15:43 Const General: alert; No acute distress Eyes Conjunctivae: conjunctivae normal Resp Auscultation: clear to auscultation bilaterally Cardio Rate: regular rate Rhythm: regular rhythm GI Inspection: Yes normal to inspection Extrem General: Yes normal to inspection and No edema Assessment and Plan Assessment & Plan (1) Impaired glucose tolerance: Code(s): R73.02 - Impaired glucose tolerance (oral) Plan: Decrease the amount of carbohydrate intake, pasta, bread, rice and potatoes are all sugar and that is aside from all the sweet stuff, remember that fruits are good but they are Sweet also. (2) Hypercholesterolemia: Code(s): E78.00 - Pure hypercholesterolemia, unspecified Plan: Avoid fried foods, chicken skin, eggs, butter margarine, pastries and meat. Be it pork or beef they have a lot of cholesterol LDL goal of less than 130 and triglyceride of less than 150 said repeat blood work (3) BPH (benign prostatic hyperplasia): Code(s): N40.0 - Benign prostatic hyperplasia without lower urinary tract symptoms Qualifiers: Lower urinary tract symptom presence: symptoms present Lower urinary tract symptom detail: urinary frequency Qualified Code(s): N40.1 - Benign prostatic hyperplasia with lower urinary tract symptoms; R35.0 - Frequency of micturition Plan: Stable (4) Obstructive sleep apnea: Comment: HAS MODERATELY SEVERE OBSTRUCTIVE SLEEP APNEA. HE IS TOTALLY NON COMPLIANT TO THE USE OF CPAP. EDUCATED THROUGH THE USE OF PAPERHANGER APPRENTICE. ADVISED THAT HE SHOULD USE IT EVERY NIGHT AT LEAST FOR 4-5 HOURS PER NIGHT HE SHOULD USE FLONASE 2 SPRAY IN EACH NOSTRIL EVERY EVENING. AND ALSO USE ATROVENT NASAL SPRAY ONE SPRAY IN EACH NOSTRIL BID HE IS ALSO ADVISED TO CONTINUE LOSING WEIGHT SLOWLY. Code(s): G47.33 - Obstructive sleep apnea (adult) (pediatric) Plan: Discussed about CPAP use patient reasons out that the CPAP is not working and discussed the importance of getting this fixed. Patient has had this sleep apnea since 2020 with an AHI of 30.5 severe. With this problem not being fixed not surprised for having headaches as the patient has not been sleeping blood pressure being uncontrolled still a problem also. (5) GERD (gastroesophageal reflux disease): Code(s): K21.9 - Gastro-esophageal reflux disease without esophagitis Qualifiers: Esophagitis presence: without esophagitis Qualified Code(s): K21.9 - Gastro-esophageal reflux disease without esophagitis Plan: Avoid the foods that causes that usually spicy foods, tomato products, juices, coffee, soda and foods that your sensitive to. After eating do not lie down, allow 3-4 hours before in lie down. And keep the head of bed above 30 degrees to avoid the acid from going up. (6) HTN (hypertension): Code(s): I10 - Essential (primary) hypertension Qualifiers: Hypertension type: essential hypertension Qualified Code(s): I10 - Essential (primary) hypertension Plan: Continue with blood pressure medication. Decrease salt intake and exercise patient on metoprolol and hydrochlorothiazide Orders: Orders Hemoglobin A1c Today R73.02 - Impaired glucose tolerance (oral) Lipid Panel Today E78.00 - Pure hypercholesterolemia, unspecified Free T4 (Free Thyroxine) Today E78.00 - Pure hypercholesterolemia, unspecified Comprehensive Met. Panel Today R73.02 - Impaired glucose tolerance (oral) Complete Blood Count Auto Diff Today E78.00 - Pure hypercholesterolemia, unspecified Thyroid Stimulating Hormone Today E78.00 - Pure hypercholesterolemia, unspecified Coding Level of Care Code Est Pt Level 4 (56145) Diagnoses Impaired glucose tolerance R73.02 Hypercholesterolemia E78.00 Benign prostatic hyperplasia with urinary frequency N40.1; R35.0 Lower urinary tract symptom presence: symptoms present Lower urinary tract symptom detail: urinary frequency Obstructive sleep apnea G47.33 Gastroesophageal reflux disease without esophagitis K21.9 Esophagitis presence: without esophagitis Essential hypertension I10 Hypertension type: essential hypertension
[2023-05-21 15:45] VITALS: BP 118/92; PULSE 85; O2SAT 98; BMI 28.3
== END 2023-05-21 16:38 | disposition home or self-care (01) ==
PROVIDERS: PCP Internal Medicine; Visit Provider Internal Medicine
DX: R73.02 Impaired glucose tolerance (oral) (principal); E78.00 Pure hypercholesterolemia, unspecified; N40.1 Benign prostatic hyperplasia with lower urinary tract symptoms; R35.0 Frequency of micturition; G47.33 Obstructive sleep apnea (adult) (pediatric); K21.9 Gastro-esophageal reflux disease without esophagitis; I10 Essential (primary) hypertension
CPT/HCPCS: 99214

== ENCOUNTER 2023-07-02 08:04 | Outpatient (REF) | payer OTHER, SELFPAY ==
[2023-07-02 08:25] LABS: MANUAL DIFF FLAG NO
[2023-07-02 08:52] LABS: Basophils Absolute Auto 0.1 X10*3/uL (0.0-0.2); Basophils Percent Auto 0.9 % (0-2); Eosinophils Absolute Auto 0.2 X10*3/uL (0.0-0.4); Eosinophils Percent Auto 2.9 % (0-4); Hematocrit 43.9 % (42.0-52.0); Hemoglobin 14.7 g/dl (14.0-18.0); Imm Gran Abs Auto 0.01 X10*3/uL (0.00-0.03); Imm Gran Pct Auto 0.2 % (0.0-0.4); Lymphocytes Absolute Auto 2.6 X10*3/uL (1.2-4.9); Lymphocytes Percent Auto 44.7 % (20-40); Mean Corpuscular HGB Conc 33.5 g/dl (31.0-36.0); Mean Corpuscular Hemoglobin 30.3 pg (27.0-33.0); Mean Corpuscular Volume 90.5 fL (80.0-98.0); Mean Platelet Volume 10.5 fL (9.4-12.4); Monocytes Absolute Auto 0.6 X10*3/uL (0.1-1.2); Monocytes Percent Auto 10.7 % (2-11); Neutrophils Absolute Auto 2.3 x10*3/uL (2.0-8.3); Neutrophils Percent Auto 40.6 % (45-73); Platelet Count 197 X10*3/uL (160-400); Red Blood Count 4.85 X10*6/uL (4.60-5.80); Red Cell Distribution Width 12.9 % (11.0-16.0); White Blood Count 5.8 X10*3/uL (4.8-10.8)
[2023-07-02 09:09] LABS: Estimated Average Glucose 103 mg/dL; Hemoglobin A1c % 5.2 % (<6.0)
[2023-07-02 09:22] LABS: Alanine Aminotransferase 15 U/L (0-40); Albumin Level 4.4 g/dL (3.5-5.0); Alkaline Phosphatase 97 U/L (39-117); Anion Gap 14 (12-20); Aspartate Amino Transferase 23 U/L (5-37); Bilirubin Total 0.7 mg/dL (0.0-1.0); Blood Urea Nitrogen 11 mg/dL (9-16); Calcium 9.4 mg/dL (8.4-10.2); Carbon Dioxide 26 mmol/L (22-29); Chloride 106 mmol/L (96-108); Cholesterol 149 mg/dL (<200); Estimated Glomerular Filt Rate > 60; Glucose Random 99 mg/dL (60-115); HDL Cholesterol 36 mg/dL (>40); LDL Cholesterol Calculated 92 mg/dL (<100); Potassium 4.1 mmol/L (3.3-5.1); Sodium 142 mmol/L (135-145); Total Protein 8.1 g/dL (6.5-8.0); Triglycerides 108 mg/dL (<150)
[2023-07-02 09:35] LABS: Free T4 (Free Thyroxine) 1.07 ng/dL (0.71-1.85); Thyroid Stimulating Hormone 0.94 uIU/mL (0.32-4.0)
== END 2023-07-02 08:05 | disposition home or self-care (01) ==
LOC: HO.LAB 08:04
PROVIDERS: PCP Internal Medicine; Visit Provider Internal Medicine
DX: R73.02 Impaired glucose tolerance (oral) (principal); E78.00 Pure hypercholesterolemia, unspecified
CPT/HCPCS: 36415; 80053; 80061; 83036; 84439; 84443; 85025

== ENCOUNTER 2023-08-17 16:05 | Outpatient (AMB) | payer OTHER, SELFPAY ==
[2023-08-17 16:06] VITALS: BP 122/90; PULSE 67; O2SAT 98; BMI 28.5
--- NOTE | 2023-08-17 16:06 | A.OFFPC_ITS ---
Vital Signs 08/17/23 16:06 Height 5 ft 11 in Weight 204 lb 0.8 oz BMI 28.5 BP 122/90 H Blood Pressure Location Lt brachial Position Sitting Pulse 67 Pulse Source Pulse Oximeter Pulse Oximetry (%) 98 Oxygen Delivery Method Room Air Intake Visit Reasons: PE Intake Note: Patient is here today for a physical. Allergies No Known Allergies Allergy (Verified 08/17/23 16:07) Medication List - Last Reconciled 08/17/23 by Anabella Finch MD amlodipine 10 mg PO DAILY [AUTO PAP 6-16 cm H2) humidified Air As directed] blood pressure test kit-large As directed clotrimazole 1% 1 appl topical BID 4 weeks hydrochlorothiazide 25 mg PO QAM 90 days metoprolol succinate ER 50 mg PO DAILY 90 days omeprazole 20 mg PO DAILY Tobacco use date assessed: 08/17/23 Dental Screening Dental Screen Date: 08/17/23 Did you have a dental visit in the last 12 months?: No Did you have a dental problem in the last 6 months where you did not have access to dental care?: No HPI PE HPI Details 52-year-old overweight male with a histo ry of impaired glucose tolerance hypercholesterolemia BPH obstructive sleep apnea GERD and hypertension last seen in May 2023. Patient is here for physical exam. Up-to-date with colonoscopy November 2020 10 years. [facility] Medical History (Updated 02/08/23 @ 17:06 by Anabella Finch MD) COVID-19 vaccine administered Asthma Colon cancer screening Vitamin D deficiency Obstructive sleep apnea Erectile dysfunction GERD (gastroesophageal reflux disease) Right renal stone HTN (hypertension) Surgical History Hx of lithotripsy Status post excision of lipoma Family History Father Stroke Alcohol abuse Myocardial infarct Mother Hypertension Sister Myocardial infarct Social History (Updated 08/17/23 @ 16:26 by Anabella Finch MD) Household Members: Significant Other Housing: Apartment Are you a primary child care education coordinator to a significant other at home: No Do you presently have visiting nurse or other home services: No Alcohol intake: current Alcohol intake frequency: a few times a month Comment: once Q 2 weeks Patient Tobacco Use Status: Never used Tobacco Years Smoked: marijuana, no cigarettes e-Cigarette/Vaping Use: Never Used Second Hand Smoke Exposure: No Substance Use Type: Marijuana Current occupational status: employed Cognitive needs: No Hearing needs: Yes Vision needs: No Questionnaire PHQ-9 Over the last 2 weeks, how often have you been bothered by any of the following problems? 1. Little interest or pleasure in doing things: not at all 2. Feeling down, depressed, or hopeless: not at all 3. Trouble falling or staying asleep, or sleeping too much: not at all 4. Feeling tired or having little energy: not at all 5. Poor appetite or overeating: not at all 6. Feeling bad about yourself - or that you are a failure or have let yourself or your family down: not at all 7. Trouble concentrating on things, such as reading the newspaper or watching television: not at all 8. Moving or speaking so slowly that other people could have noticed. Or the opposite - being so fidgety or restless that you have been moving around a lot more than usual: not at all 9. Thoughts that you would be better off or of hurting yourself in some way: not at all Total score: 0 Depression Screening Interpretation: Positive Depression Screening Done: Yes Source: Developed by Drs. Reynaldo Mcghee, Ivone Gill, Hans Rosado and colleagues, with an educational lamar from [employer]. Thrive Questionnaire Date Thrive assessed: 08/17/23 I am a: Patient What is your living situation today?: I have a steady place to live Within the past 12 months, did the food you bought not last and you didn't have the money to get more?: Never true Within the past 12 months, did you worry whether your food would run out before you got money to buy more?: Never true Do you have trouble paying for medicines?: No Do you have trouble getting transportation to medical appointments?: No Do you have trouble paying your heating and electricity bill?: No Do you have trouble taking care of your child, family member or friend?: No Do you have trouble with day-to-day activities such as bathing, preparing meals, shopping, managing finances, etc.?: No Are you currently unemployed and looking for a job?: No Are you interested in more education?: No Please select the resources that you would like help with: None THRIVE Score: 0 AUDIT C Alcohol Use Questionnaire (AUDIT-C) 1. How often do you have a drink containing alcohol?: 2-3 times a week 2. How many drinks containing alcohol do you have on a typical day when you are drinking?: 3 or 4 3. How often do you have six or more drinks on one occasion?: Less than monthly Total Score: 5 DASHA-7 AMB Questionnaire DASHA-7 Date DASHA - 7 assessed: 08/17/23 Feeling nervous, anxious, or on edge: 0 = Not at all Not being able to stop or control worryin = Not at all Worrying too much about different things: 0 = Not at all Trouble relaxin = Not at all Being so restless that it is hard to sit still: 0 = Not at all Becoming easily annoyed or irritable: 0 = Not at all Feeling afraid as if something awful might happen: 0 = Not at all Total DASHA-7 score (0-4 normal; 5-9 mild; 10-14 moderate; 15-21 severe): 0 Source: Developed by Drs. Reynaldo Mcghee, Ivone Gill, Hans Rosado and colleagues, with an educational lamar from [employer]. Review of Systems Const Denies poor appetite and Denies weakness Eyes Denies no additional complaints ENT Reports Normal hearing present, Denies dizziness, Denies nasal congestion, Denies tinnitus and Denies sore throat Card Denies chest pain, Denies syncope, Denies rapid heart rate and Denies dyspnea Resp Denies cough and Denies dyspnea GI Denies change in stool character, Reports constipation, Denies diarrhea, Denies nausea and Denies vomiting Denies dysuria and Denies urinary frequency Neuro Reports Normal hearing present, Denies confusion, Denies dizziness, Denies syncope and Denies weakness Psych Denies confusion Physical exam (Primary Care) Vital Signs: Last Vital Signs Pulse 67 08/17/23 16:06 BP 122/90 H 08/17/23 16:06 Pulse Ox 98 08/17/23 16:06 Oxygen Delivery Method Room Air 08/17/23 16:06 BMI result Body Mass Index 28.5 Tobacco/Smoking Status: Tobacco use Status Tobacco use date assessed 08/17/23 08/17/23 16:12 Patient Tobacco Use Status Never used Tobacco 08/17/23 16:26 e-Cigarette/Vaping Use Never Used 08/17/23 16:26 PHQ-9: PHQ-9 Score PHQ-9: Total score 0 08/17/23 16:21 Depression Screening Interpretation: Positive Thrive Assessment: Date of Thrive Assessment Date Thrive assessed 08/17/23 08/17/23 16:12 Const General: No confusion Orientation/consciousness: No confusion HENMT Head: Yes normocephalic Ears: external ears normal and TM's normal bilaterally Face and sinus: Yes normal facial exam Mouth: moist mucous membranes Throat: Yes tonsils normal Eyes Conjunctivae: conjunctivae normal Pupils: Equal, round and reactive pupils present and Pupil accommodation reflex normal Direct Ophthalmoscopy: normal light reflex Neck Neck: No lymphadenopathy Thyroid: Thyroid normal Chest Chest palpation & inspection: normal inspection of the chest Resp Effort & Inspection: normal respiratory effort and no audible wheezes Auscultation: clear to auscultation bilaterally, no crackles, no wheezes and lung sounds not diminished Cardio Rate: regular rate Rhythm: regular rhythm Peripheral pulses: radial pulses present and dorsalis pedis present GI Other: guaiac negative prostate N Palpation (GI): no masses Auscultation: normal bowel sounds and normoactive bowel sounds Male General Exam: Yes normal external exam Skin General skin exam: no rashes or lesions noted Rashes: no rashes Neuro General: No confusion Cranial nerves: Yes Equal, round and reactive pupils present and Yes Normal hearing present Cognition (Neuro): normal cognition Gait exam (Neuro): Normal gait present Motor exam (neuro): 5/5 motor strength present throughout Deep tendon reflexes (DTR's): Right brachioradialis reflex intensity grade: 2+, Left brachioradialis reflex intensity grade: 2+, Right patellar reflex intensity grade: 2+ and Left patellar reflex intensity grade: 2+ Extrem General: No edema Office Procedures Flu Questionnaire Does the patient have a severe egg allergy?: No Does the patient have severe life threatening allergies?: No Does the patient have a fever or illness today?: No Has the patient ever had Guillain-Destrehan Syndrome?: No Has the patient ever had any past reaction to a flu shot?: No Immunizations flu vacc [id number] 6mos up(PF) 60 mcg(15 mcgx4)/0.5 mL IM syringe Performing Provider: Anabella Finch MD [facility] Administered by: SEE Pillai on 08/17/23 16:48 Dose Route Admin Location Dispensed Lot Number Expiration Date NDC Attic Blower 0.5 mL IM Left Deltoid 0.5 mL [id number] 01/16/24 [id number] nGAP VIS Given Date VIS Provided VIS Publication Date 08/17/23 Single Vaccine 21 Eligibility Eligibility Date Funding Source Not [facility] Eligible 08/17/23 Private Assessment and Plan Assessment & Plan (1) Annual physical exam: Code(s): Z00.00 - Encounter for general adult medical examination without abnormal findings (2) HTN (hypertension): Code(s): I10 - Essential (primary) hypertension Qualifiers: Hypertension type: essential hypertension Qualified Code(s): I10 - Essential (primary) hypertension Plan: Continue with blood pressure medication. Decrease salt intake and exercise patient takes amlodipine 10 mg once a day hydrochlorothiazide 12.5 mg once a day and metoprolol 50 mg once a day. Diastolic blood pressure still elevated will increase hydrochlorothiazide 25 mg once a day (3) GERD (gastroesophageal reflux disease): Code(s): K21.9 - Gastro-esophageal reflux disease without esophagitis Qualifiers: Esophagitis presence: without esophagitis Qualified Code(s): K21.9 - Gastro-esophageal reflux disease without esophagitis Plan: Avoid the foods that causes that usually spicy foods, tomato products, juices, coffee, soda and foods that your sensitive to. After eating do not lie down, allow 3-4 hours before in lie down. And keep the head of bed above 30 degrees to avoid the acid from going up. (4) Obstructive sleep apnea: Comment: HAS MODERATELY SEVERE OBSTRUCTIVE SLEEP APNEA. HE IS TOTALLY NON COMPLIANT TO THE USE OF CPAP. EDUCATED THROUGH THE USE OF GAMB CUTTER. ADVISED THAT HE SHOULD USE IT EVERY NIGHT AT LEAST FOR 4-5 HOURS PER NIGHT HE SHOULD USE FLONASE 2 SPRAY IN EACH NOSTRIL EVERY EVENING. AND ALSO USE ATROVENT NASAL SPRAY ONE SPRAY IN EACH NOSTRIL BID HE IS ALSO ADVISED TO CONTINUE LOSING WEIGHT SLOWLY. Code(s): G47.33 - Obstructive sleep apnea (adult) (pediatric) Plan: Discussed importance of using CPAP for the sleep apnea patient is still noncompliant and states can not tolerate the CPAP. (5) BPH (benign prostatic hyperplasia): Code(s): N40.0 - Benign prostatic hyperplasia without lower urinary tract symptoms Qualifiers: Lower urinary tract symptom presence: symptoms present Lower urinary tract symptom detail: urinary frequency Qualified Code(s): N40.1 - Benign prostatic hyperplasia with lower urinary tract symptoms; R35.0 - Frequency of micturition Plan: Will start tamsulosin. (6) Asthma: Comment: MILD INTERMITTENT . TX CONT. TO USE ALBUTEROL 2 PUFFS Q 6 HRS PRN Code(s): J45.909 - Unspecified asthma, uncomplicated Qualifiers: Asthma severity: mild Asthma persistence: intermittent Asthma complication type: uncomplicated Qualified Code(s): J45.20 - Mild intermittent asthma, uncomplicated Plan: Continue with inhaler as needed (7) Generalized anxiety disorder: Code(s): F41.1 - Generalized anxiety disorder Plan: Stable (8) Hypercholesterolemia: Code(s): E78.00 - Pure hypercholesterolemia, unspecified Plan: Avoid fried foods, chicken skin, eggs, butter margarine, pastries and meat. Be it pork or beef they have a lot of cholesterol LDL goal of less than 130 and triglyceride of less than 150 (9) Impaired glucose tolerance: Code(s): R73.02 - Impaired glucose tolerance (oral) Plan: Decrease the amount of carbohydrate intake, pasta, bread, rice and potatoes are all sugar and that is aside from all the sweet stuff, remember that fruits are good but they are Sweet also. (10) Tinnitus: Code(s): H93.19 - Tinnitus, unspecified ear Plan: Referral for hearing test (11) Frequency of micturition: Code(s): R35.0 - Frequency of micturition Plan: Will start on tamsulosin. Orders: Orders Influenza [id number] Immunization Today Z23 - Encounter for immunization Referrals Speech and Hearing Referral H93.19 - Tinnitus, unspecified ear Medications: New fexofenadine (Oyly Allergy) 180 mg PO DAILY 30 tabs 3RF tamsulosin 0.4 mg PO BEDTIME 30 caps 2RF R35.0 - Frequency of micturition Changed From hydrochlorothiazide 12.5 mg PO QAM 90 tabs 3RF 90 days I10 - Essential (primary) hypertension To hydrochlorothiazide 25 mg PO QAM 90 tabs 3RF 90 days I10 - Essential (primary) hypertension Coding Level of Care Code Est Pt Prev Care 40-64y(06442) Diagnoses Annual physical exam Z00.00 Essential hypertension I10 Hypertension type: essential hypertension Gastroesophageal reflux disease without esophagitis K21.9 Esophagitis presence: without esophagitis Obstructive sleep apnea G47.33 Benign prostatic hyperplasia with urinary frequency N40.1; R35.0 Lower urinary tract symptom presence: symptoms present Lower urinary tract symptom detail: urinary frequency Mild intermittent asthma without complication J45.20 Asthma severity: mild Asthma persistence: intermittent Asthma complication type: uncomplicated Generalized anxiety disorder F41.1 Hypercholesterolemia E78.00 Impaired glucose tolerance R73.02 Tinnitus H93.19 Frequency of micturition R35.0
== END 2023-08-17 16:54 | disposition home or self-care (01) ==
PROVIDERS: Visit Provider Internal Medicine
DX: Z00.00 Encounter for general adult medical examination without abnormal findings (principal); I10 Essential (primary) hypertension; K21.9 Gastro-esophageal reflux disease without esophagitis; Z23 Encounter for immunization; G47.33 Obstructive sleep apnea (adult) (pediatric); N40.1 Benign prostatic hyperplasia with lower urinary tract symptoms; R35.0 Frequency of micturition; J45.20 Mild intermittent asthma, uncomplicated; F41.1 Generalized anxiety disorder; E78.00 Pure hypercholesterolemia, unspecified; R73.02 Impaired glucose tolerance (oral)
CPT/HCPCS: 90471; 90686; 99396

== ENCOUNTER 2023-09-02 15:35 | Outpatient (AMB) | payer OTHER, SELFPAY ==
[2023-09-02 15:53] VITALS: BP 116/86; PULSE 86; O2SAT 98; BMI 28.6
--- NOTE | 2023-09-02 15:53 | A.OFFPC_ITS ---
Vital Signs 09/02/23 15:53 Height 5 ft 11 in Weight 205 lb BMI 28.6 BP 116/86 Blood Pressure Location Lt brachial Position Sitting Pulse 86 Pulse Source Pulse Oximeter Pulse Oximetry (%) 98 Oxygen Delivery Method Room Air Intake Visit Reasons: JUAN PABLO, HTN, CHOL Payable Representative: Not Required per policy Accompanied by: Self / Same As Patient Allergies No Known Allergies Allergy (Verified 09/02/23 15:54) Tobacco use date assessed: 08/17/23 HPI JUAN PABLO, HTN, CHOL HPI Details 52-year-old overweight male with hyperte nsion GERD obstructive sleep apnea BPH asthma generalized anxiety disorder hypercholesterolemia and impaired glucose tolerance last seen in July 2023. Patient's colonoscopy is up-to-date. Soo Lomeli [id number] strongly advised to use the CPAP. QD as it will affect the heart. insurance is changing. [facility] Medical History (Updated 02/08/23 @ 17:06 by Anabella Finch MD) COVID-19 vaccine administered Asthma Colon cancer screening Vitamin D deficiency Obstructive sleep apnea Erectile dysfunction GERD (gastroesophageal reflux disease) Right renal stone HTN (hypertension) Surgical History Hx of lithotripsy Status post excision of lipoma Family History Father Stroke Alcohol abuse Myocardial infarct Mother Hypertension Sister Myocardial infarct Social History (Updated 08/17/23 @ 16:26 by Anabella Finch MD) Household Members: Significant Other Housing: Apartment Are you a primary care services manager to a significant other at home: No Do you presently have visiting nurse or other home services: No Alcohol intake: current Alcohol intake frequency: a few times a month Comment: once Q 2 weeks Patient Tobacco Use Status: Never used Tobacco Years Smoked: marijuana, no cigarettes e-Cigarette/Vaping Use: Never Used Second Hand Smoke Exposure: No Substance Use Type: Marijuana Current occupational status: employed Cognitive needs: No Hearing needs: Yes Vision needs: No Questionnaire Thrive Questionnaire Date Thrive assessed: 08/17/23 DASHA-7 AMB Questionnaire DASHA-7 Date DASHA - 7 assessed: 08/17/23 Source: Developed by Drs. Reynaldo Mcghee, Ivone Gill, Hans Rosado and colleagues, with an educational lamar from [employer]. Physical exam (Primary Care) Vital Signs: Last Vital Signs Pulse 86 09/02/23 15:53 BP 116/86 09/02/23 15:53 Pulse Ox 98 09/02/23 15:53 Oxygen Delivery Method Room Air 09/02/23 15:53 BMI result Body Mass Index 28.6 Tobacco/Smoking Status: Tobacco use Status Tobacco use date assessed 08/17/23 09/02/23 15:54 Patient Tobacco Use Status Never used Tobacco 09/02/23 15:54 e-Cigarette/Vaping Use Never Used 09/02/23 15:54 Thrive Assessment: Date of Thrive Assessment Date Thrive assessed 08/17/23 09/02/23 15:54 Const General: alert; No acute distress Eyes Conjunctivae: conjunctivae normal Resp Auscultation: clear to auscultation bilaterally Cardio Rate: regular rate Rhythm: regular rhythm GI Inspection: Yes normal to inspection Extrem General: Yes normal to inspection and No edema Assessment and Plan Assessment & Plan (1) Obstructive sleep apnea: Comment: HAS MODERATELY SEVERE OBSTRUCTIVE SLEEP APNEA. HE IS TOTALLY NON COMPLIANT TO THE USE OF CPAP. EDUCATED THROUGH THE USE OF BUILDER'S LABOURER. ADVISED THAT HE SHOULD USE IT EVERY NIGHT AT LEAST FOR 4-5 HOURS PER NIGHT HE SHOULD USE FLONASE 2 SPRAY IN EACH NOSTRIL EVERY EVENING. AND ALSO USE ATROVENT NASAL SPRAY ONE SPRAY IN EACH NOSTRIL BID HE IS ALSO ADVISED TO CONTINUE LOSING WEIGHT SLOWLY. Code(s): G47.33 - Obstructive sleep apnea (adult) (pediatric) Plan: Patient is strongly advised to use the CPAP (2) HTN (hypertension): Code(s): I10 - Essential (primary) hypertension Qualifiers: Hypertension type: essential hypertension Qualified Code(s): I10 - Essential (primary) hypertension Plan: Continue with blood pressure medication. Decrease salt intake and exercise presently on amlodipine 10 mg once a day hydrochlorothiazide 25 mg once a day and metoprolol succinate 50 mg once a day (3) GERD (gastroesophageal reflux disease): Code(s): K21.9 - Gastro-esophageal reflux disease without esophagitis Qualifiers: Esophagitis presence: without esophagitis Qualified Code(s): K21.9 - Gastro-esophageal reflux disease without esophagitis Plan: Avoid the foods that causes that usually spicy foods, tomato products, juices, c offee, soda and foods that your sensitive to. After eating do not lie down, allow 3-4 hours before in lie down. And keep the head of bed above 30 degrees to avoid the acid from going up. (4) BPH (benign prostatic hyperplasia): Code(s): N40.0 - Benign prostatic hyperplasia without lower urinary tract symptoms Qualifiers: Lower urinary tract symptom detail: urinary frequency Lower urinary tract symptom presence: symptoms present Qualified Code(s): N40.1 - Benign prostatic hyperplasia with lower urinary tract symptoms; R35.0 - Frequency of micturition Plan: Continue with tamsulosin (5) Asthma: Comment: MILD INTERMITTENT . TX CONT. TO USE ALBUTEROL 2 PUFFS Q 6 HRS PRN Code(s): J45.909 - Unspecified asthma, uncomplicated Qualifiers: Asthma complication type: uncomplicated Asthma persistence: intermittent Asthma severity: mild Qualified Code(s): J45.20 - Mild intermitt ent asthma, uncomplicated Plan: Stable (6) Generalized anxiety disorder: Code(s): F41.1 - Generalized anxiety disorder Plan: Stable (7) Hypercholesterolemia: Code(s): E78.00 - Pure hypercholesterolemia, unspecified Plan: Avoid fried foods, chicken skin, eggs, butter margarine, pastries and meat. Be it pork or beef they have a lot of cholesterol LDL goal of less than 130 and triglyceride of less than 150 June 2023 Coding Level of Care Code Est Pt Level 4 (26597) Diagnoses Obstructive sleep apnea G47.33 Essential hypertension I10 Hypertension type: essential hypertension Gastroesophageal reflux disease without esophagitis K21.9 Esophagitis presence: without esophagitis Benign prostatic hyperplasia with urinary frequency N40.1; R35.0 Lower urinary tract symptom detail: urinary frequency Lower urinary tract symptom presence: symptoms present Mild intermittent asthma without complication J45.20 Asthma complication type: uncomplicated Asthma persistence: intermittent Asthma severity: mild Generalized anxiety disorder F41.1 Hypercholesterolemia E78.00
== END 2023-09-02 16:37 | disposition home or self-care (01) ==
PROVIDERS: PCP Internal Medicine; Visit Provider Internal Medicine
DX: G47.33 Obstructive sleep apnea (adult) (pediatric) (principal); I10 Essential (primary) hypertension; K21.9 Gastro-esophageal reflux disease without esophagitis; N40.1 Benign prostatic hyperplasia with lower urinary tract symptoms; R35.0 Frequency of micturition; J45.20 Mild intermittent asthma, uncomplicated; F41.1 Generalized anxiety disorder; E78.00 Pure hypercholesterolemia, unspecified
CPT/HCPCS: 99214

== ENCOUNTER 2023-10-06 16:02 | Outpatient (REF) | payer OTHER, SELFPAY ==
--- NOTE | 2023-10-07 08:08 | MHC.AU.HA3 ---
Hearing Instrument Follow-Up- Binaural Date of Visit: 10/06/23 Right Ear: Alexandr, , Color, Serial Number: Maranda Deluna [id number] SN: [id number] Color: Black Sausage Tier Repair Warranty: 12/09/2023 Sausage Tier Loss and Damage Warranty: 12/09/2023 [facility] Service Plan: 10/11/2021 Battery Size: Rechargeable Fence Installer/Slim Tube: 1M Earmold/Dome/CShell/SlimTip:Medium closed dome with retention tail Type of Wax Guard: CeruShield Dispensed By: [facility] Date of Fittin10/11/2020 Left Ear: Alexandr, , Color, Serial Number: Maranda Deluna [id number] SN: [id number] Color: Black Sausage Tier Repair Warranty: 12/09/2023 Sausage Tier Loss and Damage Warranty: 12/09/2023 [facility] Service Plan: 10/11/2021 Battery Size: Rechargeable Fence Installer/Slim Tube: 1M Earmold/Dome/CShell/SlimTip: Medium closed domes with retention tail Type of Wax Guard: CeruShield Dispensed By: [facility] Date of Fittin10/11/2020 Follow-Up Summary: Clive reported his hearing aids need a cleaning, as it has been almost 2 years since they were serviced. The domes are also reportedly too big causing discomfort in his ear canals. Cleaned both hearing aids. Replaced domes, wax guards, and retention tails. Switched from large closed dome to medium closed dome. Vacuumed microphones. Ran through dehumidifier. A listening check demonstrated hearing aids amplifying clearly. Clive noted improvement in comfort with smaller sized dome. Updated firmware. Paired to new cellphone. Clive is scheduled for an updated hearing test in October 2023. Recommendations: Hearing instrument follow-up or maintenance as needed. Please contact our clinic with any questions or concerns. Diagnosis Code(s): Primary Diagnosis: H90.3 Bilateral Sensorineural Hearing Loss Signature: Provider: Adriana De La Rosa, [facility]
== END 2023-10-06 16:03 | disposition home or self-care (01) ==
LOC: HO.HAP 16:02
PROVIDERS: Visit Provider Internal Medicine
DX: Z46.1 Encounter for fitting and adjustment of hearing aid (principal); H90.3 Sensorineural hearing loss, bilateral
CPT/HCPCS: 92593; 99499

== ENCOUNTER 2023-10-25 16:17 | Outpatient (AMB) | payer OTHER, SELFPAY ==
[2023-10-25 16:23] VITALS: BP 110/86; PULSE 74; O2SAT 97; BMI 28.7
--- NOTE | 2023-10-25 16:23 | MHC.PC.OV ---
Vital Signs 10/25/23 16:23 Height 5 ft 11 in Weight 206 lb 0.8 oz BMI 28.7 BP 110/86 Blood Pressure Location Lt brachial Position Sitting Pulse 74 Pulse Source Pulse Oximeter Pulse Oximetry (%) 97 Oxygen Delivery Method Room Air Intake Visit Reasons: Hypertension Layout Technician Required: Yes Layout Technician Language: Thai Allergies No Known Allergies Allergy (Verified 10/25/23 16:24) Medication List - Last Reconciled 10/25/23 by Anabella Finch MD amlodipine 10 mg PO DAILY [AUTO PAP 6-16 cm H2) humidified Air As directed] blood pressure test kit-large As directed clotrimazole 1% 1 appl topical BID 4 weeks fexofenadine (Yoly Allergy) 180 mg PO DAILY hydrochlorothiazide 25 mg PO QAM 90 days metoprolol succinate ER 50 mg PO DAILY 90 days omeprazole 20 mg PO DAILY tamsulosin 0.4 mg PO BEDTIME Tobacco use date assessed: 10/25/23 Dental Screening Dental Screen Date: 08/17/23 HPI Hypertension HPI Details 52-year-old overweight male with hypertension GERD BPH asthma hypercholesterolemia obstructive sleep apnea and generalized anxiety disorder last seen in August 2023. Patient comes in for follow-up for the blood pressure patient is on amlodipine 10 mg once a day hydrochlorothiazide 25 mg once a day and metoprolol 50 mg once a day. astepro allergy med sample given. complains of chest pain , no n no v, occurs when stretching out , not exertion PFSH Medical History (Updated 02/08/23 @ 17:06 by Anabella Finch MD) COVID-19 vaccine administered Asthma Colon cancer screening Vitamin D deficiency Obstructive sleep apnea Erectile dysfunction GERD (gastroesophageal reflux disease) Right renal stone HTN (hypertension) Surgical History Hx of lithotripsy Status post excision of lipoma Family History Father Stroke Alcohol abuse Myocardial infarct Mother Hypertension Sister Myocardial infarct Social History (Updated 08/17/23 @ 16:26 by Anabella Finch MD) Household Members: Significant Other Housing: Apartment Are you a primary direct support professional caregiver to a significant other at home: No Do you presently have visiting nurse or other home services: No Alcohol intake: current Alcohol intake frequency: a few times a month Comment: once Q 2 weeks Patient Tobacco Use Status: Never used Tobacco Years Smoked: marijuana, no cigarettes e-Cigarette/Vaping Use: Never Used Second Hand Smoke Exposure: No Substance Use Type: Marijuana Current occupational status: employed Cognitive needs: No Hearing needs: Yes Vision needs: No Questionnaire Thrive Questionnaire Date Thrive assessed: 08/17/23 AUDIT C Alcohol Use Questionnaire (AUDIT-C) 1. How often do you have a drink containing alcohol?: 2-3 times a week 2. How many drinks containing alcohol do you have on a typical day when you are drinking?: 3 or 4 3. How often do you have six or more drinks on one occasion?: Less than monthly Total Score: 5 DASHA-7 AMB Questionnaire DASHA-7 Date DASHA - 7 assessed: 08/17/23 Source: Developed by Drs. Reynaldo Mcghee, Ivone Gill, Hans Rosado and colleagues, with an educational lamar from [employer]. Physical exam (Primary Care) Vital Signs: Last Vital Signs Pulse 74 10/25/23 16:23 BP 110/86 10/25/23 16:23 Pulse Ox 97 10/25/23 16:23 Oxygen Delivery Method Room Air 10/25/23 16:23 BMI result Body Mass Index 28.7 Tobacco/Smoking Status: Tobacco use Status Tobacco use date assessed 10/25/23 10/25/23 16:25 Patient Tobacco Use Status Never used Tobacco 10/25/23 16:25 e-Cigarette/Vaping Use Never Used 10/25/23 16:25 Thrive Assessment: Date of Thrive Assessment Date Thrive assessed 08/17/23 10/25/23 16:25 Const General: alert; No acute distress Eyes Conjunctivae: conjunctivae normal Resp Auscultation: clear to auscultation bilaterally Cardio Rate: regular rate Rhythm: regular rhythm GI Inspection: Yes normal to inspection Extrem General: Yes normal to inspection and No edema Assessment and Plan Assessment & Plan (1) Obstructive sleep apnea: Comment: HAS MODERATELY SEVERE OBSTRUCTIVE SLEEP APNEA. HE IS TOTALLY NON COMPLIANT TO THE USE OF CPAP. EDUCATED THROUGH THE USE OF DIELECTRIC TESTING MACHINE OPERATOR. ADVISED THAT HE SHOULD USE IT EVERY NIGHT AT LEAST FOR 4-5 HOURS PER NIGHT HE SHOULD USE FLONASE 2 SPRAY IN EACH NOSTRIL EVERY EVENING. AND ALSO USE ATROVENT NASAL SPRAY ONE SPRAY IN EACH NOSTRIL BID HE IS ALSO ADVISED TO CONTINUE LOSING WEIGHT SLOWLY. Code(s): G47.33 - Obstructive sleep apnea (adult) (pediatric) Plan: Discussed with the patient about CPAP and advantage of treating it. Patient is not quite yet using > 4 hours a night and advised the need to use this (2) HTN (hypertension): Code(s): I10 - Essential (primary) hypertension Qualifiers: Hypertension type: essential hypertension Qualified Code(s): I10 - Essential (primary) hypertension Plan: Continue with blood pressure medication. Decrease salt intake and exercise presently on metoprolol 50 mg once a day hydrochlorothiazide 25 mg once a day and amlodipine 10 mg once a day blood pressure presently is normal (3) GERD (gastroesophageal reflux disease): Code(s): K21.9 - Gastro-esophageal reflux disease without esophagitis Qualifiers: Esophagitis presence: without esophagitis Qualified Code(s): K21.9 - Gastro-esophageal reflux disease without esophagitis Plan: Reflux (4) Generalized anxiety disorder: Code(s): F41.1 - Generalized anxiety disorder Plan: Stable Medications: New azelastine (Astepro Allergy) administer into each nostril 1 spray intranasal BEDTIME 30 mL 0RF Refilled fexofenadine (Yoly Allergy) 180 mg PO DAILY 90 tabs 2RF Coding Level of Care Code Est Pt Level 4 (08331) Diagnoses Obstructive sleep apnea G47.33 Essential hypertension I10 Hypertension type: essential hypertension Gastroesophageal reflux disease without esophagitis K21.9 Esophagitis presence: without esophagitis Generalized anxiety disorder F41.1
== END 2023-10-25 17:03 | disposition home or self-care (01) ==
PROVIDERS: PCP Internal Medicine; Visit Provider Internal Medicine
DX: G47.33 Obstructive sleep apnea (adult) (pediatric) (principal); I10 Essential (primary) hypertension; K21.9 Gastro-esophageal reflux disease without esophagitis; F41.1 Generalized anxiety disorder
CPT/HCPCS: 99214

== ENCOUNTER 2023-11-12 10:29 | Outpatient (REF) | payer OTHER, SELFPAY ==
--- NOTE | 2023-11-12 11:02 | MHC.AU.HA3 ---
Hearing Instrument Follow-Up- Binaural Date of Visit: 11/12/23 Right Ear: Alexandr, Model, Color, Serial Number: Maranda Deluna [id number] SN: [id number] Color: Black [employer] Rep[employer] Warranty: 12/09/2023 [employer] Loss and Damage Warranty: 12/09/2023 [facility] Service Plan: 10/11/2021 Battery Size: Rechargeable Transportation Worker/Slim Tube: 1M Earmold/Dome/CShell/SlimTip:Medium closed dome with retention tail Type of Wax Guard: CeruShield Dispensed By: [facility] Date of Fittin10/11/2020 Left Ear: Alexandr, Model, Color, Serial Number: Maranda Deluna [id number] SN: [id number] Color: Black [employer] Rep[employer] Warranty: 12/09/2023 [employer] Loss and Damage Warranty: 12/09/2023 [facility] Service Plan: 10/11/2021 Battery Size: Rechargeable Transportation Worker/Slim Tube: 1M Earmold/Dome/CShell/SlimTip: Medium closed domes with retention tail Type of Wax Guard: CeruShield Dispensed By: [facility] Date of Fittin10/11/2020 Follow-Up Summary: Clive returned for an updated hearing test and hearing aid maintenance. His insurance has changed to [employer], which does not include hearing aid services. Given that his hearing aids were recently cleaned and checked on 10/06/2023, Clive opted to forgo any hearing aid services today. However, he knows any future visits will incur a [id number]. Recommendations: Hearing instrument follow-up or maintenance as needed. Please contact our clinic with any questions or concerns. Diagnosis Code(s): Primary Diagnosis: H90.3 Bilateral Sensorineural Hearing Loss Signature: Provider: Adriana De La Rosa, [facility]
== END 2023-11-12 10:30 | disposition home or self-care (01) ==
LOC: HO.SH 10:29
PROVIDERS: Visit Provider Internal Medicine
DX: Z01.118 Encounter for examination of ears and hearing with other abnormal findings (principal); H90.3 Sensorineural hearing loss, bilateral
CPT/HCPCS: 92557

== ENCOUNTER 2024-02-18 16:50 | Emergency (ER) | payer OTHER, SELFPAY ==
--- NOTE | ~2024-02-18 | XR_ITS ---
EXAMINATION: XR ANKLE, RIGHT CLINICAL INFORMATION: Twisted ankle. COMPARISON: None available. TECHNIQUE: AP, lateral, and mortise views of the right ankle. FINDINGS: No fracture. Alignment is anatomic. No erosions. Joint spaces are maintained. The soft tissue overlying the lateral malleolus is swollen. XR/XR ankle RT 2V IMPRESSION: No fracture or dislocation. Soft tissue swelling.
--- NOTE | ~2024-02-18 | XR_ITS ---
EXAMINATION: XR FOOT, RIGHT CLINICAL INFORMATION: Twisted ankle. Pain. COMPARISON: None available. TECHNIQUE: AP, lateral, and oblique views of the right foot. FINDINGS: The bones and soft tissues are normal. No fracture. Alignment is anatomic. Joint spaces are maintained. XR/XR foot RT min 3V IMPRESSION: No fracture or dislocation.
[2024-02-18 17:07] VITALS: BP 131/91; PULSE 66; RESP 16; TEMP 36.6; O2SAT 96; BMI 28.7
--- NOTE | 2024-02-18 17:07 | ED.LOWEXIN ---
HPI - Extremity Injury (Lower) General Chief Complaint: Extremity Injury, Lower Stated Complaint: R ankle injury @ work Time Seen by Provider: 02/18/24 17:36 History of Present Illness HPI Narrative: Patient complains of right ankle pain and swelling when he tripped and twisted right ankle ankle He did not fall and he has no other injury no head injury no neck pain no back pain, no numbness weakness or tingling Related Data Home Medications ?Medication ?Instructions ?Recorded ?Confirmed blood pressure test kit-large #1 ea 09/10/20 10/25/23 Previous Rx's ?Medication ?Instructions ?Recorded clotrimazole 1 % topical cream 1 appl topical BID 4 weeks #45 08/11/22 grams AUTO PAP 6-16 cm H2) humidified Air #1 ea 02/08/23 metoprolol succinate 50 mg 50 mg PO DAILY 90 days #90 tabs 06/11/23 tablet,extended release 24 hr hydrochlorothiazide 25 mg tablet 25 mg PO QAM 90 days #90 tabs 08/17/23 tamsulosin 0.4 mg capsule 0.4 mg PO BEDTIME #30 caps 08/17/23 azelastine 205.5 mcg (0.15 %) 1 spray intranasal BEDTIME #30 mL 10/25/23 nasal spray (Astepro Allergy) fexofenadine 180 mg tablet 180 mg PO DAILY #90 tabs 10/25/23 (Yoly Allergy) amlodipine 10 mg tablet 10 mg PO DAILY #90 tabs 11/03/23 omeprazole 20 mg capsule,delayed 20 mg PO DAILY #90 caps 02/07/24 release acetaminophen 500 mg tablet 1,000 mg (2 x 500 mg) PO QID PRN 02/18/24 pain #30 tabs ibuprofen 400 mg tablet 400 mg PO Q6H PRN pain #20 tabs 02/18/24 Allergies Allergy/AdvReac Type Severity Reaction Status Date / Time No Known Allergies Allergy Verified 02/18/24 17:12 [facility] Past Medical History Source: nursing notes reviewed Medical History (Updated 02/18/24 @ 18:39 by KAVITA Morales) COVID-19 vaccine administered Asthma Colon cancer screening Vitamin D deficiency Obstructive sleep apnea Erectile dysfunction GERD (gastroesophageal reflux disease) Right renal stone HTN (hypertension) Surgical History Hx of lithotripsy Status post excision of lipoma Family History Family History Father Stroke Alcohol abuse Myocardial infarct Mother Hypertension Sister Myocardial infarct Social History Social History (Updated 08/17/23 @ 16:26 by Anabella Finch MD) Household Members: Significant Other Housing: Apartment Are you a primary intensive care nurse to a significant other at home: No Do you presently have visiting nurse or other home services: No Alcohol intake: current Alcohol intake frequency: a few times a month Comment: once Q 2 weeks Patient Tobacco Use Status: Never used Tobacco Years Smoked: marijuana, no cigarettes e-Cigarette/Vaping Use: Never Used Second Hand Smoke Exposure: No Substance Use Type: Marijuana Advance Directives: No Advance Directives Information Provided: No Current occupational status: employed Cognitive needs: No Hearing needs: Yes Vision needs: No Physical Exam Vital Signs: Vital Signs: Last Vital Signs Temp 98 F 02/18/24 17:07 Pulse 66 02/18/24 17:07 Resp 16 02/18/24 17:07 BP 131/91 H 02/18/24 17:07 Pulse Ox 96 02/18/24 17:07 O2 Del Method Room Air 02/18/24 17:07 BMI result Body Mass Index 28.7 General appearance no acute distress Head is normocephalic atraumatic Neck is supple nontender Respiratory no distress Extremities full range motion x4 including right ankle Right foot and ankle exam the lateral aspect of the right ankle distal to the malleolus is ecchymotic and swollen and tender, there is full range of motion in the toes there is no obvious deformity, neurovascular intact distal with normal sensation and motion The knee above is nontender full range of motion, the toes have full range motion Course Course Course Narrative: This is an RME performed by Ariella Knight CNP: Additional HPI, ROS, PE not included below will be deferred to primary provider. Reports a right ankle injury sustained at work when going down the stairs reports his foot got caught and sustained an inversion injury. Now with pain and swelling. Plan: XR X-rays of right foot and ankle did not show any obvious fracture, radiology report was negative Patient will follow with work connection for work related injury and was given Aircast and crutches Discharge Plan Discharge Clinical Impression: Right ankle sprain Patient Disposition: Home, Self-Care Additional Instructions: X-ray did not show a broken bone, so you have a sprained ankle As your job requires lots of walking I wrote a work note for 5 days off As this is work related injury follow with work connection for further evaluation Apply ice elevate leg Return any time any worse condition or any concerns Prescriptions: New acetaminophen 500 mg tablet 1,000 mg PO QID PRN (Reason: pain) Qty: 30 0RF ibuprofen 400 mg tablet 400 mg PO Q6H PRN (Reason: pain) Qty: 20 0RF No Action metoprolol succinate 50 mg tablet extended release 24 hr 50 mg PO DAILY 90 Days Qty: 90 2RF amlodipine 10 mg tablet 10 mg PO DAILY Qty: 90 2RF omeprazole 20 mg capsule,delayed release(DR/EC) 20 mg PO DAILY Qty: 90 2RF clotrimazole 1 % cream 1 appl topical BID 28 Days Qty: 45 0RF (DME) AUTO PAP 6-16 cm H2) humidified Air See Rx Instructions .Route .MEDSUPPLY Qty: 1 0RF Rx Instructions: As directed hydrochlorothiazide 25 mg tablet 25 mg PO QAM 90 Days Qty: 90 3RF tamsulosin 0.4 mg capsule 0.4 mg PO BEDTIME Qty: 30 2RF fexofenadine [Yoly Allergy] 180 mg tablet 180 mg PO DAILY Qty: 90 2RF azelastine [Astepro Allergy] 205.5 mcg (0.15 %) spray,non-aerosol 1 spray intranasal BEDTIME Qty: 30 0RF Rx Instructions: administer into each nostril (DME) blood pressure test kit-large Kit See Rx Instructions .ROUTE DIRECTED Qty: 1 Rx Instructions: As directed Referrals: [facility] [Provider Group] (Right ankle injury at work) Stand Alone Forms: Work/School Release Print Language: Cuban
[2024-02-18 18:56] VITALS: BP 127/88; PULSE 76; RESP 16; TEMP 36.3; O2SAT 99
[2024-02-18 19:08] VITALS: BP 127/88; PULSE 76; RESP 16; TEMP 36.3; O2SAT 99
== END 2024-02-18 19:09 | disposition home or self-care (01) ==
PROVIDERS: Emergency Provider Emergency Medicine; PCP Internal Medicine
DX: S93.401A Sprain of unspecified ligament of right ankle, initial encounter (principal); X50.1XXA Overexertion from prolonged static or awkward postures, initial encounter; Y93.89 Activity, other specified; Y92.59 Other trade areas as the place of occurrence of the external cause; Y99.0 Civilian activity done for income or pay
CPT/HCPCS: 73600; 73630; 99282; 99283

== ENCOUNTER 2024-05-01 16:17 | Outpatient (AMB) | payer OTHER, SELFPAY ==
--- NOTE | 2024-05-01 16:25 | A.OFFPC_ITS ---
Vital Signs 05/01/24 16:26 Height 5 ft 11 in Weight 203 lb 8 oz BMI 28.4 BP 110/78 Blood Pressure Location Lt brachial Position Sitting Pulse 100 Pulse Source Pulse Oximeter Pulse Oximetry (%) 96 Oxygen Delivery Method Room Air Intake Visit Reasons: 6mof\u Intake Note: Patient is here to follow up on HTN, GERD, JUAN PABLO, DASHA. Vp Account Director Required: Yes Vp Account Director Language: Consulting Solution Director Name: Jordan ([id number]) Information Interpreted: non-clinical & clinical Superintendent Quarry: Not Required per policy Accompanied by: Self / Same As Patient Allergies No Known Allergies Allergy (Verified 05/01/24 16:26) Tobacco use date assessed: 05/01/24 Dental Screening Dental Screen Date: 08/17/23 HPI 6mof\u HPI Details 53-year-old overweight male with a histo ry of obstructive sleep apnea, hypertension, GERD and generalized anxiety disorder last seen in October 2023. Patient is up-to-date with colonoscopy 2020. Review of the notes had right ankle injury at work 03/07/2024 patient tripped and twisted right ankle. Denies any fall. No head injury x-ray of the right foot negative for fracture diagnosis of right ankle sprain was given NSAIDs. [facility] Medical History (Updated 05/01/24 @ 18:54 by Anabella Finch MD) COVID-19 vaccine administered Asthma Colon cancer screening Vitamin D deficiency Obstructive sleep apnea Erectile dysfunction GERD (gastroesophageal reflux disease) Right renal stone HTN (hypertension) Surgical History Hx of lithotripsy Status post excision of lipoma Family History (Updated 05/01/24 @ 16:32 by SEE Melgoza) Father Stroke Alcohol abuse Myocardial infarct Mother Hypertension Sister Myocardial infarct Other Substance use disorder Social History Household Members: Significant Other Housing: Apartment Are you a primary animal care giver to a significant other at home: No Do you presently have visiting nurse or other home services: No Alcohol intake: current Alcohol intake frequency: a few times a month Comment: once Q 2 weeks Patient Tobacco Use Status: Never used Tobacco Years Smoked: marijuana, no cigarettes e-Cigarette/Vaping Use: Never Used Second Hand Smoke Exposure: No Substance Use Type: Marijuana service: No Current occupational status: employed Cognitive needs: No Hearing needs: Yes Vision needs: No Questionnaire Thrive Questionnaire Date Thrive assessed: 08/17/23 Are you currently unemployed and looking for a job?: Yes DASHA-7 AMB Questionnaire DASHA-7 Date DASHA - 7 assessed: 08/17/23 Source: Developed by Drs. Reynaldo Mcghee, Ivone Gill, Hans Rosado and colleagues, with an educational lamar from [employer]. Physical exam (Primary Care) Vital Signs: Last Vital Signs Pulse 100 05/01/24 16:26 BP 110/78 05/01/24 16:26 Pulse Ox 96 05/01/24 16:26 Oxygen Delivery Method Room Air 05/01/24 16:26 BMI result Body Mass Index 28.4 Tobacco/Smoking Status: Tobacco use Status Tobacco use date assessed 05/01/24 05/01/24 16:33 Patient Tobacco Use Status Never used Tobacco 05/01/24 16:33 e-Cigarette/Vaping Use Never Used 05/01/24 16:33 Thrive Assessment: Date of Thrive Assessment Date Thrive assessed 08/17/23 05/01/24 16:33 Const General: alert; No acute distress Eyes Conjunctivae: conjunctivae normal Resp Auscultation: clear to auscultation bilaterally Cardio Rate: regular rate Rhythm: regular rhythm GI Inspection: Yes normal to inspection Extrem General: Yes normal to inspection and No edema Office Procedures Flu Questionnaire Does the patient have a severe egg allergy?: No Does the patient have severe life threatening allergies?: No Does the patient have a fever or illness today?: No Has the patient ever had Guillain-[place] Syndrome?: No Has the patient ever had any past reaction to a flu shot?: No Immunizations Fluarix Triv [id number] (PF) 45 mcg (15 mcg x 3)/0.5 mL IM syringe Performing Provider: Anabella Finch MD [facility] Administered by: Shawna Mcneill LPN on 05/01/24 16:42 Dose Route Admin Location Dispensed Lot Number Expiration Date [facility] Hr Assistant 0.5 mL IM Left Deltoid 0.5 mL [id number] 01/15/25 38914-532-55 [employer] VIS Given Date VIS Provided VIS Publication Date 05/01/24 Single Vaccine 21 Eligibility Eligibility Date Funding Source Not [facility] Eligible 05/01/24 Private Coding Level of Care Code Est Pt Level 4 (46189) Diagnoses Impaired glucose tolerance R73.02 Hypercholesterolemia E78.00 Obstructive sleep apnea G47.33 Essential hypertension I10 Hypertension type: essential hypertension Gastroesophageal reflux disease without esophagitis K21.9 Esophagitis presence: without esophagitis Benign prostatic hyperplasia with urinary frequency N40.1; R35.0 Lower urinary tract symptom detail: urinary frequency Lower urinary tract symptom presence: symptoms present Generalized anxiety disorder F41.1 Mild intermittent asthma without complication J45.20 Asthma complication type: uncomplicated Asthma persistence: intermittent Asthma severity: mild Vision changes H53.9 Acute non intractable tension-type headache G44.209 Headache chronicity pattern: acute headache Headache type: tension-type Intractability: not intractable Assessment & Plan Assessment & Plan (1) Impaired glucose tolerance: Code(s): R73.02 - Impaired glucose tolerance (oral) Category: Medical Plan: Decrease the amount of carbohydrate intake, pasta, bread, rice and potatoes are all sugar and that is aside from all the sweet stuff, remember that fruits are good but they are Sweet also. (2) Hypercholesterolemia: Code(s): E78.00 - Pure hypercholesterolemia, unspecified Category: Medical Plan: Avoid fried foods, chicken skin, eggs, butter margarine, pastries and meat. Be it pork or beef they have a lot of cholesterol LDL goal of less than 130 and triglyceride of less than 150 patient's last blood work was done in 2022. (3) Obstructive sleep apnea: Comment: HAS MODERATELY SEVERE OBSTRUCTIVE SLEEP APNEA. HE IS TOTALLY NON COMPLIANT TO THE USE OF CPAP. EDUCATED THROUGH THE USE OF STAFF RESPIRATORY THERAPIST. ADVISED THAT HE SHOULD USE IT EVERY NIGHT AT LEAST FOR 4-5 HOURS PER NIGHT HE SHOULD USE FLONASE 2 SPRAY IN EACH NOSTRIL EVERY EVENING. AND ALSO USE ATROVENT NASAL SPRAY ONE SPRAY IN EACH NOSTRIL BID HE IS ALSO ADVISED TO CONTINUE LOSING WEIGHT SLOWLY. Cannot tolerate CPAP (04/2024) Code(s): G47.33 - Obstructive sleep apnea (adult) (pediatric) Category: Medical Plan: Discussion about CPAP use. but not able to tolerate (4) HTN (hypertension): Code(s): I10 - Essential (primary) hypertension Category: Medical Qualifiers: Hypertension type: essential hypertension Qualified Code(s): I10 - Essential (primary) hypertension Plan: Continue with blood pressure medication. Decrease salt intake and exercise takes amlodipine 10 mg once a day hydrochlorothiazide 25 mg once a day and me toprolol 50 mg once a day (5) GERD (gastroesophageal reflux disease): Code(s): K21.9 - Gastro-esophageal reflux disease without esophagitis Category: Medical Qualifiers: Esophagitis presence: without esophagitis Qualified Code(s): K21.9 - Gastro-esophageal reflux disease without esophagitis Plan: Avoid the foods that causes that usually spicy foods, tomato products, juices, coffee, soda and foods that your sensitive to. After eating do not lie down, allow 3-4 hours before in lie down. And keep the head of bed above 30 degrees t o avoid the acid from going up. (6) BPH (benign prostatic hyperplasia): Code(s): N40.0 - Benign prostatic hyperplasia without lower urinary tract symptoms Category: Medical Qualifiers: Lower urinary tract symptom detail: urinary frequency Lower urinary tract symptom presence: symptoms present Qualified Code(s): N40.1 - Benign prostatic hyperplasia with lower urinary tract symptoms; R35.0 - Frequency of micturition Plan: Continue with tamsulosin (7) Generalized anxiety disorder: Code(s): F41.1 - Generalized anxiety disorder Category: Medical Plan: Stable (8) Asthma: Comment: MILD INTERMITTENT . TX CONT. TO USE ALBUTEROL 2 PUFFS Q 6 HRS PRN Code(s): J45.909 - Unspecified asthma, uncomplicated Category: Medical Qualifiers: Asthma complication type: uncomplicated Asthma persistence: intermittent Asthma severity: mild Qualified Code(s): J45.20 - Mild intermittent asthma, uncomplicated Plan: Albuterol inhaler as needed (9) Vision changes: Code(s): H53.9 - Unspecified visual disturbance Category: Medical Plan: Ophthalmology referral done (10) Headache: Comment: R sided SZYMANSKI Code(s): R51.9 - Headache, unspecified Category: Medical Qualifiers: Headache chronicity pattern: acute headache Headache type: tension-type Intractability: not intractable Qualified Code(s): G44.209 - Tension-type headache, unspecified, not intractable Plan: discussed that if it persist will work up. Orders: Orders Influenza [id number] Immunization Today Z23 - Encounter for immunization Comprehensive Met. Panel 2 Months I10 - Essential (primary) hypertension Lipid Panel 2 Months E78.00 - Pure hypercholesterolemia, unspecified, I10 - Essential (primary) hypertension Vitamin B12 and Folate 2 Months I10 - Essential (primary) hypertension Complete Blood Count Auto Diff 2 Months I10 - Essential (primary) hypertension Free T4 (Free Thyroxine) 2 Months I10 - Essential (primary) hypertension Thyroid Stimulating Hormone 2 Months I10 - Essential (primary) hypertension Prostate Specific Antigen Scr 2 Months I10 - Essential (primary) hypertension Hemoglobin A1c 2 Months R73.02 - Impaired glucose tolerance (oral) Referrals Ophthalmology Referral H53.9 - Unspecified visual disturbance
[2024-05-01 16:26] VITALS: BP 110/78; PULSE 100; O2SAT 96; BMI 28.4
== END 2024-05-01 17:07 | disposition home or self-care (01) ==
PROVIDERS: PCP Internal Medicine; Visit Provider Internal Medicine
DX: R73.02 Impaired glucose tolerance (oral) (principal); E78.00 Pure hypercholesterolemia, unspecified; G47.33 Obstructive sleep apnea (adult) (pediatric); I10 Essential (primary) hypertension; K21.9 Gastro-esophageal reflux disease without esophagitis; N40.1 Benign prostatic hyperplasia with lower urinary tract symptoms; R35.0 Frequency of micturition; F41.1 Generalized anxiety disorder; J45.20 Mild intermittent asthma, uncomplicated; H53.9 Unspecified visual disturbance; G44.209 Tension-type headache, unspecified, not intractable; Z23 Encounter for immunization

== ENCOUNTER → 2024-05-01 16:17 | Outpatient (BNVA) | payer OTHER, SELFPAY | PROVIDERS: PCP Internal Medicine; Visit Provider Internal Medicine | DX: R73.02 Impaired glucose tolerance (oral) (principal); E78.00 Pure hypercholesterolemia, unspecified; G47.33 Obstructive sleep apnea (adult) (pediatric); I10 Essential (primary) hypertension; K21.9 Gastro-esophageal reflux disease without esophagitis; N40.1 Benign prostatic hyperplasia with lower urinary tract symptoms; R35.0 Frequency of micturition; F41.1 Generalized anxiety disorder; J45.20 Mild intermittent asthma, uncomplicated; H53.9 Unspecified visual disturbance; G44.209 Tension-type headache, unspecified, not intractable; Z79.899 Other long term (current) drug therapy; Z23 Encounter for immunization | CPT/HCPCS: 90471; 90656; 99212 ==

== ENCOUNTER 2024-08-04 07:29 | Outpatient (REF) | payer OTHER, SELFPAY ==
[2024-08-04 07:50] LABS: MANUAL DIFF FLAG NO
[2024-08-04 08:03] LABS: Basophils Absolute Auto 0.1 X10*3/uL (0.0-0.2); Basophils Percent Auto 0.9 % (0-2); Eosinophils Absolute Auto 0.2 X10*3/uL (0.0-0.4); Eosinophils Percent Auto 3.2 % (0-4); Hematocrit 41.6 % (42.0-52.0); Hemoglobin 14.2 g/dl (14.0-18.0); Imm Gran Abs Auto 0.02 X10*3/uL (0.00-0.03); Imm Gran Pct Auto 0.4 % (0.0-0.4); Lymphocytes Absolute Auto 2.7 X10*3/uL (1.2-4.9); Lymphocytes Percent Auto 50.5 % (20-40); Mean Corpuscular HGB Conc 34.1 g/dl (31.0-36.0); Mean Corpuscular Hemoglobin 30.7 pg (27.0-33.0); Mean Corpuscular Volume 89.8 fL (80.0-98.0); Mean Platelet Volume 10.5 fL (9.4-12.4); Monocytes Absolute Auto 0.5 X10*3/uL (0.1-1.2); Monocytes Percent Auto 9.3 % (2-11); Neutrophils Absolute Auto 1.9 x10*3/uL (2.0-8.3); Neutrophils Percent Auto 35.7 % (45-73); Platelet Count 184 X10*3/uL (160-400); Red Blood Count 4.63 X10*6/uL (4.60-5.80); Red Cell Distribution Width 13.1 % (11.0-16.0); White Blood Count 5.4 X10*3/uL (4.8-10.8)
[2024-08-04 08:08] LABS: Estimated Average Glucose 105 mg/dL; Hemoglobin A1C 122.9732 umol/L; Hemoglobin A1c % 5.3 % (<6.0); Total Hemoglobin (HGBA1C) 3549.1847 umol/L
[2024-08-04 08:35] LABS: Alanine Aminotransferase 15 U/L (0-40); Albumin Level 4.3 g/dL (3.5-5.0); Alkaline Phosphatase 86 U/L (39-117); Anion Gap 10 (12-20); Aspartate Amino Transferase 28 U/L (5-37); Bilirubin Total 0.5 mg/dL (0.0-1.0); Blood Urea Nitrogen 12 mg/dL (9-16); Calcium 9.3 mg/dL (8.4-10.2); Carbon Dioxide 29 mmol/L (22-29); Chloride 109 mmol/L (96-108); Cholesterol 151 mg/dL (<200); Estimated Glomerular Filt Rate > 60; Glucose Random 99 mg/dL (60-115); HDL Cholesterol 38 mg/dL (>40); LDL Cholesterol Calculated 87 mg/dL (<100); Potassium 3.5 mmol/L (3.3-5.1); Sodium 144 mmol/L (135-145); Total Protein 8.2 g/dL (6.5-8.0); Triglycerides 134 mg/dL (<150)
[2024-08-04 08:50] LABS: Free T4 (Free Thyroxine) 1.11 ng/dL (0.71-1.85); Thyroid Stimulating Hormone 1.02 uIU/mL (0.32-4.0)
[2024-08-04 08:57] LABS: Folate 15.3 ng/mL (> or = 4.0); Prostate Specific Antigen Scr 1.43 ng/mL (<0.05-4.0); Vitamin B12 495 pg/mL (200-900)
== END 2024-08-04 07:30 | disposition home or self-care (01) ==
LOC: HO.LAB 07:29
PROVIDERS: PCP Internal Medicine; Visit Provider Internal Medicine
DX: I10 Essential (primary) hypertension (principal); E78.00 Pure hypercholesterolemia, unspecified; R73.02 Impaired glucose tolerance (oral)
CPT/HCPCS: 36415; 80053; 80061; 82607; 82746; 83036; 84153; 84439; 84443; 85025

== ENCOUNTER 2024-08-07 16:45 | Outpatient (AMB) | payer OTHER, SELFPAY ==
[2024-08-07 16:56] VITALS: BP 124/86; PULSE 80; RESP 15; TEMP 36.3; O2SAT 95; BMI 29.1
--- NOTE | 2024-08-07 16:56 | A.OFFVIS_ITS ---
Vital Signs 08/07/24 16:56 Height 5 ft 11 in Weight 208 lb 6 oz BMI 29.1 Intake Visit Reasons: Hypertension Allergies No Known Allergies Allergy (Verified 05/01/24 16:26) [facility] Medical History (Updated 05/01/24 @ 18:54 by Anabella Finch MD) COVID-19 vaccine administered Asthma Colon cancer screening Vitamin D deficiency Obstructive sleep apnea Erectile dysfunction GERD (gastroesophageal reflux disease) Right renal stone HTN (hypertension) Surgical History Hx of lithotripsy Status post excision of lipoma Family History (Updated 05/01/24 @ 16:32 by SEE Melgoza) Father Stroke Alcohol abuse Myocardial infarct Mother Hypertension Sister Myocardial infarct Other Substance use disorder Social History Household Members: Significant Other Housing: Apartment Are you a primary hospice patient care secretary to a significant other at home: No Do you presently have visiting nurse or other home services: No Alcohol intake: current Alcohol intake frequency: a few times a month Comment: once Q 2 weeks Patient Tobacco Use Status: Never used Tobacco Years Smoked: marijuana, no cigarettes e-Cigarette/Vaping Use: Never Used Second Hand Smoke Exposure: No Substance Use Type: Marijuana service: No Current occupational status: employed Cognitive needs: No Hearing needs: Yes Vision needs: No Coding
--- NOTE | 2024-08-07 17:00 | A.OFFPC_ITS ---
Vital Signs 08/07/24 16:56 Height 5 ft 11 in Weight 208 lb 6 oz BMI 29.1 BP 124/86 Blood Pressure Location Lt brachial Position Sitting Respiration 15 Pulse 80 Pulse Source Pulse Oximeter Temp 97.3 F Temp Source Temporal Artery Scan Pulse Oximetry (%) 95 Oxygen Delivery Method Room Air Intake Visit Reasons: Hypertension Watch Dial Stoner Required: Yes Watch Dial Stoner Language: Clinical Laboratory Medical Director Name: PCP used tablet/ Accompanied by: Self / Same As Patient Allergies No Known Allergies Allergy (Verified 08/07/24 17:05) Tobacco use date assessed: 08/07/24 Dental Screening Dental Screen Date: 08/07/24 Did you have a dental visit in the last 12 months?: Yes Did you have a dental problem in the last 6 months where you did not have access to dental care?: No Was dental information given to patient?: Patient has dentist HPI Hypertension HPI Details Mica rivera The patient is a 53-year-old male presenting for evaluation of blood work and to discuss medication management. The patient has a known history of Chronic Obstructive Pulmonary Disease (COPD) and reports the use of albuterol and a device while watching TV, although it is difficult for him to use while sleeping due to its discomfort. The patient does not report leg cramps but acknowledges that his potassium levels are on the low side, likely due to his use of hydrochlorothiazide for hypertension. It was emphasized the importance of dietary intake of potassium-rich foods while on this medication. His recent blood work showed all values within normal limits, including blood count, kidney function, sugar levels, and cholesterol. The patient expressed no concerns requiring medication refills at this time, except for an antifungal cream for feet and groin. Preventative health measures were discussed, stressing the significance of being cautious during the flu, COVID-19, and RSV season. [facility] Medical History (Updated 05/01/24 @ 18:54 by Anabella Finch MD) COVID-19 vaccine administered Asthma Colon cancer screening Vitamin D deficiency Obstructive sleep apnea Erectile dysfunction GERD (gastroesophageal reflux disease) Right renal stone HTN (hypertension) Surgical History Hx of lithotripsy Status post excision of lipoma Family History Father Stroke Alcohol abuse Myocardial infarct Mother Hypertension Sister Myocardial infarct Other Substance use disorder Social History Household Members: Significant Other Housing: Apartment Are you a primary child care leader to a significant other at home: No Do you presently have visiting nurse or other home services: No Alcohol intake: current Alcohol intake frequency: a few times a month Comment: once Q 2 weeks Patient Tobacco Use Status: Never used Tobacco Years Smoked: marijuana, no cigarettes e-Cigarette/Vaping Use: Never Used Second Hand Smoke Exposure: No Substance Use Type: Marijuana service: No Current occupational status: employed Cognitive needs: No Hearing needs: Yes Vision needs: No Questionnaire PHQ-9 Over the last 2 weeks, how often have you been bothered by any of the following problems? 1. Little interest or pleasure in doing things: not at all 2. Feeling down, depressed, or hopeless: not at all 3. Trouble falling or staying asleep, or sleeping too much: not at all 4. Feeling tired or having little energy: not at all 5. Poor appetite or overeating: not at all 6. Feeling bad about yourself - or that you are a failure or have let yourself or your family down: not at all 7. Trouble concentrating on things, such as reading the newspaper or watching television: not at all 8. Moving or speaking so slowly that other people could have noticed. Or the opposite - being so fidgety or restless that you have been moving around a lot more than usual: not at all 9. Thoughts that you would be better off or of hurting yourself in some way: not at all Total score: 0 Depression Screening Interpretation: Negative Depression Screening Done: Yes 12934 - PHQ-9 Billing: Yes Source: Developed by Drs. Reynaldo Mcghee, Ivone Gill, Hans Rosado and colleagues, with an educational lamar from [employer]. Thrive Questionnaire Date Thrive assessed: 08/07/24 I am a: Patient What is your living situation today?: I have a steady place to live Within the past 12 months, did the food you bought not last and you didn't have the money to get more?: Never true Within the past 12 months, did you worry whether your food would run out before you got money to buy more?: Never true Do you have trouble paying for medicines?: No Do you have trouble getting transportation to medical appointments?: No Do you have trouble paying your heating and electricity bill?: No Do you have trouble taking care of your child, family member or friend?: No Do you have trouble with day-to-day activities such as bathing, preparing meals, shopping, managing finances, etc.?: No Are you currently unemployed and looking for a job?: No Are you interested in more education?: No Please select the resources that you would like help with: None Currently or been in a relationship where the following occur: No concerns reported THRIVE Score: 0 AUDIT C Alcohol Use Questionnaire (AUDIT-C) 1. How often do you have a drink containing alcohol?: 2-4 times a month 2. How many drinks containing alcohol do you have on a typical day when you are drinking?: 3 or 4 3. How often do you have six or more drinks on one occasion?: Less than monthly Total Score: 4 DASHA-7 AMB Questionnaire DASHA-7 Date DASHA - 7 assessed: 08/07/24 Feeling nervous, anxious, or on edge: 0 = Not at all Not being able to stop or control worryin = Not at all Worrying too much about different things: 0 = Not at all Trouble relaxin = Not at all Being so restless that it is hard to sit still: 0 = Not at all Becoming easily annoyed or irritable: 0 = Not at all Feeling afraid as if something awful might happen: 0 = Not at all Total DASHA-7 score (0-4 normal; 5-9 mild; 10-14 moderate; 15-21 severe): 0 Source: Developed by Drs. Reynaldo Mcghee, Ivone Gill, Hans Rosado and colleagues, with an educational lamar from [employer]. DASHA-7 Assessment Billing DASHA-7 Assessment Tool: DASHA-7 Assessment 55626 Physical exam (Primary Care) Vital Signs: Last Vital Signs Temp 97.3 F 08/07/24 16:56 Pulse 80 08/07/24 16:56 Resp 15 08/07/24 16:56 BP 124/86 08/07/24 16:56 Pulse Ox 95 08/07/24 16:56 Oxygen Delivery Method Room Air 08/07/24 16:56 BMI result Body Mass Index 29.1 Tobacco/Smoking Status: Tobacco use Status Tobacco use date assessed 08/07/24 08/07/24 17:07 Patient Tobacco Use Status Never used Tobacco 08/07/24 17:01 e-Cigarette/Vaping Use Never Used 08/07/24 17:01 PHQ-9: PHQ-9 Score PHQ-9: Total score 0 08/07/24 17:01 Depression Screening Interpretation: Negative Thrive Assessment: Date of Thrive Assessment Date Thrive assessed 08/07/24 08/07/24 17:01 Currently or been in a relationship where the following occur: No concerns reported Const General: alert; No acute distress Eyes Conjunctivae: conjunctivae normal Resp Auscultation: clear to auscultation bilaterally Cardio Rate: regular rate Rhythm: regular rhythm GI Inspection: Yes normal to inspection Extrem General: Yes normal to inspection and No edema Office Procedures Flu Questionnaire Does the patient have a severe egg allergy?: No Does the patient have severe life threatening allergies?: No Does the patient have a fever or illness today?: No Has the patient ever had Guillain-[place] Syndrome?: No Has the patient ever had any past reaction to a flu shot?: No Immunizations Fluarix Triv [id number] (PF) 45 mcg (15 mcg x 3)/0.5 mL IM syringe Performing Provider: Anabella Finch MD [place] [facility] [place] [facility] Administered by: YANET Corral on 08/07/24 17:08 Dose Route Admin Location Dispensed Lot Number Expiration Date [facility] Manager Completions 0.5 mL IM Left Deltoid 0.5 mL [id number] 01/15/25 [id number] VIS Given Date VIS Provided VIS Publication Date 08/07/24 Single Vaccine 21 Eligibility Eligibility Date Funding Source Not [facility] Eligible 08/07/24 Private Coding Level of Care Code Est Pt Level 4 (60976) Diagnoses Impaired glucose tolerance R73.02 Hypercholesterolemia E78.00 Mild intermittent asthma without complication J45.20 Asthma severity: mild Asthma persistence: intermittent Asthma complication type: uncomplicated Obstructive sleep apnea G47.33 Benign prostatic hyperplasia with urinary frequency N40.1; R35.0 Lower urinary tract symptom presence: symptoms present Lower urinary tract symptom detail: urinary frequency Essential hypertension I10 Hypertension type: essential hypertension Gastroesophageal reflux disease without esophagitis K21.9 Esophagitis presence: without esophagitis Additional Codes DASHA-7 Assessment Billing - DASHA-7 Assessment Tool: DASHA-7 Assessment 15014 ([id number]) PHQ-9 - 33114 - PHQ-9 Billing: Yes ([id number]) Assessment & Plan Assessment & Plan (1) Impaired glucose tolerance: Code(s): R73.02 - Impaired glucose tolerance (oral) Category: Medical (2) Hypercholesterolemia: Code(s): E78.00 - Pure hypercholesterolemia, unspecified Category: Medical (3) Asthma: Comment: MILD INTERMITTENT . TX CONT. TO USE ALBUTEROL 2 PUFFS Q 6 HRS PRN Code(s): J45.909 - Unspecified asthma, uncomplicated Category: Medical Qualifiers: Asthma severity: mild Asthma persistence: intermittent Asthma complication type: uncomplicated Qualified Code(s): J45.20 - Mild intermittent asthma, uncomplicated (4) Obstructive sleep apnea: Comment: HAS MODERATELY SEVERE OBSTRUCTIVE SLEEP APNEA. HE IS TOTALLY NON COMPLIANT TO THE USE OF CPAP. EDUCATED THROUGH THE USE OF OBJECT ORIENTED PROGRAMMER. ADVISED THAT HE SHOULD USE IT EVERY NIGHT AT LEAST FOR 4-5 HOURS PER NIGHT HE SHOULD USE FLONASE 2 SPRAY IN EACH NOSTRIL EVERY EVENING. AND ALSO USE ATROVENT NASAL SPRAY ONE SPRAY IN EACH NOSTRIL BID HE IS ALSO ADVISED TO CONTINUE LOSING WEIGHT SLOWLY. Cannot tolerate CPAP (04/2024) Code(s): G47.33 - Obstructive sleep apnea (adult) (pediatric) Category: Medical (5) BPH (benign prostatic hyperplasia): Code(s): N40.0 - Benign prostatic hyperplasia without lower urinary tract symptoms Category: Medical Qualifiers: Lower urinary tract symptom presence: symptoms present Lower urinary tract symptom detail: urinary frequency Qualified Code(s): N40.1 - Benign prostatic hyperplasia with lower urinary tract symptoms; R35.0 - Frequency of micturition (6) HTN (hypertension): Code(s): I10 - Essential (primary) hypertension Category: Medical Qualifiers: Hypertension type: essential hypertension Qualified Code(s): I10 - Essential (primary) hypertension (7) GERD (gastroesophageal reflux disease): Code(s): K21.9 - Gastro-esophageal reflux disease without esophagitis Category: Medical Qualifiers: Esophagitis presence: without esophagitis Qualified Code(s): K21.9 - Gastro-esophageal reflux disease without esophagitis Plan - Continue current management for Chronic Obstructive Pulmonary Disease COPD) including use of albuterol. Educate patient on the importance of using the device where necessary and monitoring breathing difficulties. - Re-evaluate and continue Essential Hypertension management with current medications. Address potential or existing hypokalemia, which is secondary to hydrochlorothiazide use, by encouraging a diet rich in potassium. - Advise the patient on the use of antifungal cream for the treatment of fungal infections on the feet and groin. - Discuss the importance of being cautious with seasonal flu and viral infecti ons, including COVID-19 and RSV, and recommend the patient take preventative measures. - Reiterated that blood work parameters, including complete blood count, kidney functions, and cholesterol levels, are within normal limits. No adjustments to medications are necessary at this time. - Emphasize ongoing lifestyle modifications to maintain healthy cholesterol levels. Orders: Orders Influenza [id number] Immunization Today Z23 - Encounter for immunization Medications: New clotrimazole 1% 1 appl topical BID 4 weeks 45 grams 1RF
== END 2024-08-07 17:29 | disposition home or self-care (01) ==
PROVIDERS: PCP Internal Medicine; Visit Provider Internal Medicine
DX: R73.02 Impaired glucose tolerance (oral) (principal); E78.00 Pure hypercholesterolemia, unspecified; J45.20 Mild intermittent asthma, uncomplicated; G47.33 Obstructive sleep apnea (adult) (pediatric); N40.1 Benign prostatic hyperplasia with lower urinary tract symptoms; R35.0 Frequency of micturition; I10 Essential (primary) hypertension; K21.9 Gastro-esophageal reflux disease without esophagitis; Z23 Encounter for immunization

== ENCOUNTER → 2024-08-07 16:45 | Outpatient (BNVA) | payer OTHER, SELFPAY | PROVIDERS: PCP Internal Medicine; Visit Provider Internal Medicine | DX: R73.02 Impaired glucose tolerance (oral) (principal); E78.00 Pure hypercholesterolemia, unspecified; J45.20 Mild intermittent asthma, uncomplicated; G47.33 Obstructive sleep apnea (adult) (pediatric); Z23 Encounter for immunization; N40.1 Benign prostatic hyperplasia with lower urinary tract symptoms; R35.0 Frequency of micturition; I10 Essential (primary) hypertension; K21.9 Gastro-esophageal reflux disease without esophagitis; J44.9 Chronic obstructive pulmonary disease, unspecified | CPT/HCPCS: 90471; 90656; 96127; 99212 ==

== ENCOUNTER 2024-08-25 16:10 | Outpatient (AMB) | payer OTHER, SELFPAY ==
--- NOTE | 2024-08-25 16:23 | MHC.PC.OV ---
Vital Signs 08/25/24 16:24 Height 5 ft 11 in Weight 210 lb 2 oz BMI 29.3 BP 130/76 Blood Pressure Location Lt brachial Position Sitting Pulse 72 Pulse Source Pulse Oximeter Temp 97.1 F Temp Source Skin Pulse Oximetry (%) 98 Oxygen Delivery Method Room Air Intake Visit Reasons: annual exam Intake Note: Patient is here today for a physical. Comptometer Operator Required: Yes Comptometer Operator Language: Kazakh Information Interpreted: non-clinical & clinical Document Imaging Specialist: Present Accompanied by: Spouse Allergies No Known Allergies Allergy (Verified 08/25/24 16:24) Medication List - Last Reconciled 08/25/24 by Anabella Finch MD acetaminophen 1,000 mg (2 x 500 mg) PO QID PRN amlodipine 10 mg PO DAILY amoxicillin-pot clavulanate 500-125 mg (Augmentin) 1 tab PO TID [AUTO PAP 6-16 cm H2) humidified Air As directed] blood pressure test kit-large As directed clotrimazole 1% 1 appl topical BID 4 weeks fexofenadine (Yoly Allergy) 180 mg PO DAILY fluticasone propionate 50 mcg/actuation (Flonase Allergy Relief) 2 sprays intranasal DAILY hydrochlorothiazide 25 mg PO QAM 90 days ibuprofen 400 mg PO Q6H PRN metoprolol succinate ER 50 mg PO DAILY 90 days omeprazole 20 mg PO DAILY tamsulosin 0.4 mg PO BEDTIME Tobacco use date assessed: 08/25/24 Dental Screening Dental Screen Date: 08/07/24 HPI annual exam HPI Details The patient is a 53-year-old male presenting for a physical examination and management of various chronic conditions including essential hypertension, obstructive sleep apnea, gastroesophageal reflux disease (GERD), and benign prostatic hyperplasia (BPH). He has been diagnosed with asthma, for which he uses an albuterol inhaler as needed, though he reports minimal use currently. The patient has experienced recent weight gain, increasing from 203 pounds in April to 210 pounds recently. He reports a history of obstructive sleep apnea but is non-compliant with CPAP usage due to nasal congestion issues, which started approximately two months ago. He experiences sinus congestion daily, with recent episodes omayra to sinusitis. Previous efforts to manage hypertension include metoprolol, hydrochlorothiazide, and amlodipine, which are ongoing. GERD is controlled with omeprazole, and BPH managed with tamsulosin. He reports a history of sinus congestion and allergies, managed previously with [id number] Yoly and Flonase nasal spray, though he expresses dissatisfaction with the nasal spray. - Discussed weight management and dietary modifications due to recent weight gain - Ongoing blood pressure management with current medications - Review of cholesterol levels indicated good control - Discussed use of CPAP for sleep apnea and alternative treatment options - Discussed alcohol intake and advised moderation - Suggested cessation of smoking and use of edibles instead of marijuana if applicable - Recommended probiotic use in case of antibiotic-associated diarrhea - Recommended sinus x-ray to further investigate sinus congestion - Maintained current asthma inhaler management plan - Reports limited alcohol consumption, approximately two times per month, but intake is substantial at one sitting - Denies current use of tobacco products but discusses marijuana use - Reports sedentary lifestyle with recent weight gain - Expresses difficulty tolerating CPAP due to nasal issues - No detailed employment, housing, or educational status discussed - HEENT: Reports nasal congestion, denies other nasal symptoms or regular use of inhaled corticosteroids - Respiratory: Denies consistent use of inhaler; no reports of wheezing or dyspnea - Cardiovascular: Reports dizziness on changing position; denies chest pain - Gastrointestinal: Denies nausea, vomiting, or difficulty swallowing - Genitourinary: Denies issues with BPH management - Musculoskeletal: Denies joint pain - Neurological: Denies headaches or seizures - General: Reports history of weight gain - Labs from August 04: Normal blood count, low-normal potassium, normal renal function, normal blood sugar, normal liver function, good cholesterol levels, normal prostate-specific numbers, good vitamin B12 and folic acid levels [facility] Medical History (Updated 08/25/24 @ 17:06 by Anabella Finch MD) COVID-19 vaccine administered Asthma Colon cancer screening Vitamin D deficiency Obstructive sleep apnea Erectile dysfunction GERD (gastroesophageal reflux disease) Right renal stone HTN (hypertension) Surgical History Hx of lithotripsy Status post excision of lipoma Family History Father Stroke Alcohol abuse Myocardial infarct Mother Hypertension Sister Myocardial infarct Other Substance use disorder Social History (Updated 08/25/24 @ 16:48 by Anabella Finch MD) Household Members: Significant Other Housing: Apartment Are you a primary zoo caretaker to a significant other at home: No Do you presently have visiting nurse or other home services: No Alcohol intake: current Alcohol intake frequency: a few times a month Comment: once Q 2 weeks 6-8 adamas Patient Tobacco Use Status: Never used Tobacco Years Smoked: marijuana, no cigarettes e-Cigarette/Vaping Use: Never Used Second Hand Smoke Exposure: No Substance Use Type: Marijuana service: No Current occupational status: employed Cognitive needs: No Hearing needs: Yes Vision needs: No Questionnaire PHQ-9 Over the last 2 weeks, how often have you been bothered by any of the following problems? 3. Trouble falling or staying asleep, or sleeping too much: several days 4. Feeling tired or having little energy: several days 5. Poor appetite or overeating: not at all 6. Feeling bad about yourself - or that you are a failure or have let yourself or your family down: not at all 7. Trouble concentrating on things, such as reading the newspaper or watching television: not at all 8. Moving or speaking so slowly that other people could have noticed. Or the opposite - being so fidgety or restless that you have been moving around a lot more than usual: not at all 9. Thoughts that you would be better off or of hurting yourself in some way: not at all Source: Developed by Drs. Reynaldo Mcghee, Ivone Gill, Hans Rosado and colleagues, with an educational lamar from [employer]. Thrive Questionnaire Date Thrive assessed: 08/07/24 I am a: Patient What is your living situation today?: I have a steady place to live Within the past 12 months, did the food you bought not last and you didn't have the money to get more?: I choose not to answer this question Within the past 12 months, did you worry whether your food would run out before you got money to buy more?: Sometimes True Do you have trouble paying for medicines?: Yes Do you have trouble getting transportation to medical appointments?: No Do you have trouble paying your heating and electricity bill?: I choose not to answer this question Do you have trouble taking care of your child, family member or friend?: No Do you have trouble with day-to-day activities such as bathing, preparing meals, shopping, managing finances, etc.?: No Are you currently unemployed and looking for a job?: No Are you interested in more education?: No Please select the resources that you would like help with: None Currently or been in a relationship where the following occur: No concerns reported THRIVE Score: 1 AUDIT C Alcohol Use Questionnaire (AUDIT-C) 1. How often do you have a drink containing alcohol?: Monthly or less 2. How many drinks containing alcohol do you have on a typical day when you are drinking?: 5 or 6 3. How often do you have six or more drinks on one occasion?: Monthly Total Score: 5 DASHA-7 AMB Questionnaire DASHA-7 Date DASHA - 7 assessed: 08/07/24 Feeling nervous, anxious, or on edge: 1 = Several days Not being able to stop or control worryin = Several days Worrying too much about different things: 1 = Several days Trouble relaxin = Several days Being so restless that it is hard to sit still: 1 = Several days Becoming easily annoyed or irritable: 1 = Several days Feeling afraid as if something awful might happen: 1 = Several days Total DASHA-7 score (0-4 normal; 5-9 mild; 10-14 moderate; 15-21 severe): 7 Source: Developed by Drs. Reynaldo Mcghee, Ivone Gill, Hans Rosado and colleagues, with an educational lamar from [employer]. Review of Systems Const Denies poor appetite and Denies weakness Eyes Denies no additional complaints ENT Reports Normal hearing present, Denies dizziness, Denies nasal congestion, Denies tinnitus and Denies sore throat Card Denies chest pain, Denies syncope, Denies rapid heart rate and Denies dyspnea Resp Denies cough and Denies dyspnea GI Denies change in stool character, Reports constipation, Denies diarrhea, Denies nausea and Denies vomiting Denies dysuria and Denies urinary frequency Neuro Reports Normal hearing present, Denies confusion, Denies dizziness, Denies syncope and Denies weakness Psych Denies confusion Physical exam (Primary Care) Vital Signs: Last Vital Signs Temp 97.1 F 08/25/24 16:24 Pulse 72 08/25/24 16:24 BP 130/76 08/25/24 16:24 Pulse Ox 98 08/25/24 16:24 Oxygen Delivery Method Room Air 08/25/24 16:24 BMI result Body Mass Index 29.3 Tobacco/Smoking Status: Tobacco use Status Tobacco use date assessed 08/25/24 08/25/24 16:28 Patient Tobacco Use Status Never used Tobacco 08/25/24 16:28 e-Cigarette/Vaping Use Never Used 08/25/24 16:28 Thrive Assessment: Date of Thrive Assessment Date Thrive assessed 08/07/24 08/25/24 16:28 Currently or been in a relationship where the following occur: No concerns reported Const General: No confusion Orientation/consciousness: No confusion HENMT Head: Yes normocephalic Ears: external ears normal and TM's normal bilaterally Face and sinus: Yes normal facial exam Mouth: moist mucous membranes Throat: Yes tonsils normal Eyes Conjunctivae: conjunctivae normal Pupils: Equal, round and reactive pupils present and Pupil accommodation reflex normal Direct Ophthalmoscopy: normal light reflex Neck Neck: No lymphadenopathy Thyroid: Thyroid normal Chest Chest palpation & inspection: normal inspection of the chest Resp Effort & Inspection: normal respiratory effort and no audible wheezes Auscultation: clear to auscultation bilaterally, no crackles, no wheezes and lung sounds not diminished Cardio Rate: regular rate Rhythm: regular rhythm Peripheral pulses: radial pulses present and dorsalis pedis present GI Other: guaaic negative prostate not enlarged Palpation (GI): no masses Auscultation: normal bowel sounds and normoactive bowel sounds Skin General skin exam: no rashes or lesions noted Rashes: no rashes Neuro General: No confusion Cranial nerves: Yes Equal, round and reactive pupils present and Yes Normal hearing present Cognition (Neuro): normal cognition Gait exam (Neuro): Normal gait present Motor exam (neuro): 5/5 motor strength present throughout Deep tendon reflexes (DTR's): Right brachioradialis reflex intensity grade: 2+, Left brachioradialis reflex intensity grade: 2+, Right patellar reflex intensity grade: 2+ and Left patellar reflex intensity grade: 2+ Extrem General: No edema Ankle/foot/toe images: 1. 2 cm rough hyperpigmented raised lesion on the l leg Coding Level of Care Code Est Pt Prev Care 40-64y(99222) Diagnoses Annual physical exam Z00.00 Impaired glucose tolerance R73.02 Hypercholesterolemia E78.00 Mild intermittent asthma without complication J45.20 Asthma severity: mild Asthma persistence: intermittent Asthma complication type: uncomplicated Obstructive sleep apnea G47.33 Benign prostatic hyperplasia with urinary frequency N40.1; R35.0 Lower urinary tract symptom presence: symptoms present Lower urinary tract symptom detail: urinary frequency Gastroesophageal reflux disease without esophagitis K21.9 Esophagitis presence: without esophagitis Essential hypertension I10 Hypertension type: essential hypertension Nasal congestion R09.81 Actinic keratoses L57.0 Assessment & Plan Assessment & Plan (1) Annual physical exam: Code(s): Z00.00 - Encounter for general adult medical examination without abnormal findings Category: Medical Plan: Patient is advised to eat healthy, keep well hydrated, keep active and have adequate sleep. (2) Impaired glucose tolerance: Code(s): R73.02 - Impaired glucose tolerance (oral) Category: Medical Plan: Decrease the amount of carbohydrate intake, pasta, bread, rice and potatoes are all sugar and that is aside from all the sweet stuff, remember that fruits are good but they are Sweet also. (3) Hypercholesterolemia: Code(s): E78.00 - Pure hypercholesterolemia, unspecified Category: Medical Plan: Avoid fried foods, chicken skin, eggs, butter margarine, pastries and meat. Be it pork or beef they have a lot of cholesterol (4) Asthma: Comment: MILD INTERMITTENT . TX CONT. TO USE ALBUTEROL 2 PUFFS Q 6 HRS PRN Code(s): J45.909 - Unspecified asthma, uncomplicated Category: Medical Qualifiers: Asthma severity: mild Asthma persistence: intermittent Asthma complication type: uncomplicated Qualified Code(s): J45.20 - Mild intermittent asthma, uncomplicated Plan: Patient has not been needing any inhaler. (5) Obstructive sleep apnea: Comment: HAS MODERATELY SEVERE OBSTRUCTIVE SLEEP APNEA. HE IS TOTALLY NON COMPLIANT TO THE USE OF CPAP. EDUCATED THROUGH THE USE OF PLASTIC SHEETING CUTTER. ADVISED THAT HE SHOULD USE IT EVERY NIGHT AT LEAST FOR 4-5 HOURS PER NIGHT HE SHOULD USE FLONASE 2 SPRAY IN EACH NOSTRIL EVERY EVENING. AND ALSO USE ATROVENT NASAL SPRAY ONE SPRAY IN EACH NOSTRIL BID HE IS ALSO ADVISED TO CONTINUE LOSING WEIGHT SLOWLY. Cannot tolerate CPAP (04/2024) Code(s): G47.33 - Obstructive sleep apnea (adult) (pediatric) Category: Medical Plan: Discussed about obstructive sleep apnea treatment. (6) BPH (benign prostatic hyperplasia): Code(s): N40.0 - Benign prostatic hyperplasia without lower urinary tract symptoms Category: Medical Qualifiers: Lower urinary tract symptom presence: symptoms present Lower urinary tract symptom detail: urinary frequency Qualified Code(s): N40.1 - Benign prostatic hyperplasia with lower urinary tract symptoms; R35.0 - Frequency of micturition Plan: Continue with tamsulosin (7) GERD (gastroesophageal reflux disease): Code(s): K21.9 - Gastro-esophageal reflux disease without esophagitis Category: Medical Qualifiers: Esophagitis presence: without esophagitis Qualified Code(s): K21.9 - Gastro-esophageal reflux disease without esophagitis Plan: Avoid the foods that causes that usually spicy foods, tomato products, juices, coffee, soda and foods that your sensitive to. After eating do not lie down, allow 3-4 hours before in lie down. And keep the head of bed above 30 degrees to avoid the acid from going up. (8) HTN (hypertension): Code(s): I10 - Essential (primary) hypertension Category: Medical Qualifiers: Hypertension type: essential hypertension Qualified Code(s): I10 - Essential (primary) hypertension Plan: Continue with metoprolol hydrochlorothiazide and amlodipine (9) Nasal congestion: Code(s): R09.81 - Nasal congestion Category: Medical Plan: Discussed about treatment and advised to get sinus x-rays. (10) Actinic keratoses: Comment: left leg Code(s): L57.0 - Actinic keratosis Category: Medical Plan: Referral done to dermatology Plan - Continue current antihypertensive regimen with metoprolol, hydrochlorothiazide, and amlodipine - Advise continued use of tamsulosin for benign prostatic hyperplasia - Continue omeprazole for management of gastroesophageal reflux disease - Prescribe antibiotics for potential sinusitis and order sinus x-ray for further evaluation - Budget Consultant on and promote adherence to CPAP for obstructive sleep apnea, explore alternative options if intolerable - Recommend weight management plan; address recent weight gain with diet and exercise adjustments - Discuss with the patient the impact of alcohol and encourage moderation - Market marijuana education focused on potential cardiovascular risk - Encourage using probiotic supplements if antibiotic-induced diarrhea occurs During this visit, I discussed the patient's ongoing management of essential hypertension, GERD, BPH, and asthma. We reviewed his current medication regimen, emphasizing the importance of consistent adherence to all prescribed antihypertensives and GERD medication. I expressed concerns about the patient's recent weight gain and stressed the need for dietary modifications and increased physical activity. We reviewed his usage and challenges with the CPAP machine for sleep apnea, and I advised him of the importance of compliance, given the potential cardiac impacts of untreated sleep apnea. We also addressed his sinus congestion and possible sinusitis, prompting a discussion on initiating antibiotics and obtaining a sinus x-ray. We reviewed lifestyle habits including alcohol consumption and smoking, discussing the possible health implications and encouraged moderation and cessation, respectively. We also reviewed follow-up for the patient's chronic conditions and recommended obtaining further evaluation through sinus imaging. - Continue taking all prescribed medications as directed - Seek immediate care if new or worsening symptoms develop - Follow up on sinus x-ray at your convenience - Take antibiotics as prescribed for sinusitis; monitor for side effects - Use probiotics if experiencing diarrhea while on antibiotics - Limit alcohol intake and explore smoking cessation resources - Engage in regular physical activity and make dietary adjustments to manage weight - Ensure to use the CPAP machine consistently, consult for alternatives if necessary - Schedule routine follow-ups for chronic condition management Orders: Orders US bladder Today R35.0 - Frequency of micturition XR sinus min 3V Today R09.81 - Nasal congestion Referrals Sleep Medicine Referral G47.33 - Obstructive sleep apnea (adult) (pediatric) Dermatology Referral L57.0 - Actinic keratosis Medications: New amoxicillin-pot clavulanate 500-125 mg (Augmentin) 1 tab PO TID 21 tabs 0RF R09.81 - Nasal congestion
[2024-08-25 16:24] VITALS: BP 130/76; PULSE 72; TEMP 36.2; O2SAT 98; BMI 29.3
== END 2024-08-25 17:11 | disposition home or self-care (01) ==
PROVIDERS: PCP Internal Medicine; Visit Provider Internal Medicine
DX: Z00.00 Encounter for general adult medical examination without abnormal findings (principal); R73.02 Impaired glucose tolerance (oral); E78.00 Pure hypercholesterolemia, unspecified; J45.20 Mild intermittent asthma, uncomplicated; G47.33 Obstructive sleep apnea (adult) (pediatric); N40.1 Benign prostatic hyperplasia with lower urinary tract symptoms; R35.0 Frequency of micturition; K21.9 Gastro-esophageal reflux disease without esophagitis; I10 Essential (primary) hypertension; R09.81 Nasal congestion; L57.0 Actinic keratosis

== ENCOUNTER → 2024-08-25 16:10 | Outpatient (BNVA) | payer OTHER, SELFPAY | PROVIDERS: PCP Internal Medicine; Visit Provider Internal Medicine | DX: Z00.00 Encounter for general adult medical examination without abnormal findings (principal); R73.02 Impaired glucose tolerance (oral); E78.00 Pure hypercholesterolemia, unspecified; J45.20 Mild intermittent asthma, uncomplicated; G47.33 Obstructive sleep apnea (adult) (pediatric); N40.1 Benign prostatic hyperplasia with lower urinary tract symptoms; R35.0 Frequency of micturition; K21.9 Gastro-esophageal reflux disease without esophagitis; I10 Essential (primary) hypertension; L57.0 Actinic keratosis; R09.81 Nasal congestion | CPT/HCPCS: 99396 ==

== ENCOUNTER 2024-09-07 14:41 | Outpatient (AMB) | payer OTHER, SELFPAY ==
[2024-09-07 15:15] VITALS: BP 116/64; PULSE 94; O2SAT 86; BMI 29.1
--- NOTE | 2024-09-07 15:15 | MHC.OFFVIS ---
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 The patient has experienced recent weight gain, increasing from 203 pounds in April to 210 pounds recently. He reports a history of obstructive sleep apnea but is non-compliant with CPAP usage due to nasal congestion issues, which started approximately two months ago. He experiences sinus congestion daily, with recent episodes omayra to sinusitis. Tone Regulator Required: Yes Tone Regulator Name: [email or web address] [id number] Information Interpreted: non-clinical & clinical Accompanied by: Spouse Allergies No Known Allergies Allergy (Verified 09/07/24 15:19) HPI Comments Details: A 53-year-old male referred for sleep apnea. He goes to bed at 8pm - midnight, 3-4 x times. He falls asleep in front of the tv on the couch then goes to the bedroom and falls asleep. He has difficulty with staying asleep. He snores loudly, gasping for air, choking and coughing which wakes up his also. He was diagnosed with Sleep apnea in 2020 however has not used his machine since 2020 because he feels like he is choking when he used it years ago. His BP is controlled with 3 BP medicatons Amlodipine, HCTZ, Metoprolol. He has acid reflex managed by PPI. He smokes weed 4-5 times a day. Denies Alcohol use. He has mild headaches daily, however uses OTC meds and they go away, declines meds today. He has RLS/ PLMD, numbness and wierd sensation in legs bilaterally, he has to get up out of bed to stretch daily. His mood is okay, though he seems very anxious. Diet is poor and memory is stable. [facility] Medical History COVID-19 vaccine administered Asthma Colon cancer screening Vitamin D deficiency Obstructive sleep apnea Erectile dysfunction GERD (gastroesophageal reflux disease) Right renal stone HTN (hypertension) Surgical History Hx of lithotripsy Status post excision of lipoma Family History Father Stroke Alcohol abuse Myocardial infarct Mother Hypertension Sister Myocardial infarct Other Substance use disorder Social History Household Members: Significant Other Housing: Apartment Are you a primary respiratory care technician to a significant other at home: No Do you presently have visiting nurse or other home services: No Alcohol intake: current Alcohol intake frequency: a few times a month Comment: once Q 2 weeks 6-8 beers Patient Tobacco Use Status: Never used Tobacco Years Smoked: marijuana, no cigarettes e-Cigarette/Vaping Use: Never Used Second Hand Smoke Exposure: No Substance Use Type: Marijuana service: No Current occupational status: employed Cognitive needs: No Hearing needs: Yes Vision needs: No Physical Exam Vital Signs: Last Vital Signs Pulse 94 09/07/24 15:15 BP 116/64 09/07/24 15:15 Pulse Ox 86 L 09/07/24 15:15 Oxygen Delivery Method Room Air 09/07/24 15:15 BMI result Body Mass Index 29.1 Const General: cooperative, no acute distress, anxious and tired appearing Nutritional Appearance: average body habitus Orientation/consciousness: patient oriented x3 HEENT Face and sinus: Yes normal facial exam and Yes face symmetric Teeth and gingiva: other ([place] score of 4) Eyes Pupils: Equal, round and reactive pupils present Neck Neck: Yes full ROM Resp Effort & Inspection: normal respiratory effort and able to speak in complete sentences Neuro General: patient oriented x3 and moves all extremities Cranial nerves: Yes CN's II-XII intact bilaterally, Yes Facial sensation intact/muscles of mastication intact, Yes Equal, round and reactive pupils present, Yes Normal accommodation reflex present, Yes Bilaterally intact EOM present, Yes Nystagmus not present, Yes Normal facial strength present, Yes Midline tongue present, Yes Ability to bilaterally rotate head present and Yes Ability to bilaterally elevate shoulders present Cognition (Neuro): normal cognition Gait exam (Neuro): Normal gait present Motor exam (neuro): 5/5 motor strength present throughout and Normal motor muscle tone present throughout Deep tendon reflexes (DTR's): Right triceps reflex intensity grade: 2+, Left triceps reflex intensity grade: 2+, Rt Biceps (C5, C6): 2+, Left biceps reflex intensity grade: 2+, Right brachioradialis reflex intensity grade: 2+, Left brachioradialis reflex intensity grade: 2+, Right patellar reflex intensity grade: 2+ and Left patellar reflex intensity grade: 2+ Results Reviewed Results Reviewed: NON Compliant with CPAP in 2020 could not tolerate mask or pressures may have been a language barrier as patient is [place] speaking. Assessment & Plan Assessment & Plan (1) RLS (restless legs syndrome): Code(s): G25.81 - Restless legs syndrome Category: Medical Plan: PSG snoring, gasping for air and RLS? PLMD? Labs to r/o deficiencies RLS topical cream [place], lidocaine, voltran, and stretching exercises F/U in 3 months (2) Obstructive sleep apnea: Comment: HAS MODERATELY SEVERE OBSTRUCTIVE SLEEP APNEA. HE IS TOTALLY NON COMPLIANT TO THE USE OF CPAP. EDUCATED THROUGH THE USE OF SAND CONTROL WORKER. ADVISED THAT HE SHOULD USE IT EVERY NIGHT AT LEAST FOR 4-5 HOURS PER NIGHT HE SHOULD USE FLONASE 2 SPRAY IN EACH NOSTRIL EVERY EVENING. AND ALSO USE ATROVENT NASAL SPRAY ONE SPRAY IN EACH NOSTRIL BID HE IS ALSO ADVISED TO CONTINUE LOSING WEIGHT SLOWLY. Cannot tolerate CPAP (04/2024) Code(s): G47.33 - Obstructive sleep apnea (adult) (pediatric) Category: Medical (3) Anemia: Code(s): D64.9 - Anemia, unspecified Category: Medical Qualifiers: Anemia type: iron deficiency Iron deficiency anemia type: other iron deficiency Qualified Code(s): D50.8 - Other iron deficiency anemias (4) HTN (hypertension): Code(s): I10 - Essential (primary) hypertension Category: Medical Qualifiers: Hypertension type: essential hypertension Qualified Code(s): I10 - Essential (primary) hypertension (5) Generalized anxiety disorder: Code(s): F41.1 - Generalized anxiety disorder Category: Medical (6) Headache: Comment: R sided SZYMANSKI Code(s): R51.9 - Headache, unspecified Category: Medical Qualifiers: Headache type: tension-type Headache chronicity pattern: acute headache Intractability: not intractable Qualified Code(s): G44.209 - Tension-type headache, unspecified, not intractable Plan Patient has HTN now better managed with 3 meds. Patient Education provided on Modifiable RF of CV events such as HTN. RLS / Patient is very anxious at baseline, offered dopamine agonist today will revist at next appt. Start B6 200-250mg PO daily at night Start Magnesium 400mg PO daily at night F/U after PSG in 3 months. Orders: Orders IRON PROFILE Today G47.9 - Sleep disorder, unspecified, R53.83 - Other fatigue Ferritin Today G25.81 - Restless legs syndrome RT PSG in-lab sleep study Today G25.81 - Restless legs syndrome, G47.33 - Obstructive sleep apnea (adult) (pediatric) Patient Instructions: The number 1 modifiable risk factor for cardiovascular events is HTN according to the AHA. Monitor and control BP. Sleep Hygiene Patient Education RLS? PLMD? Coding Level of Care Code Est Pt Level 4 (93689) Diagnoses RLS (restless legs syndrome) G25.81 Obstructive sleep apnea G47.33 Other iron deficiency anemia D50.8 Anemia type: iron deficiency Iron deficiency anemia type: other iron deficiency Essential hypertension I10 Hypertension type: essential hypertension Generalized anxiety disorder F41.1 Acute non intractable tension-type headache G44.209 Headache type: tension-type Headache chronicity pattern: acute headache Intractability: not intractable Time Spent (min) 30 Comment Establish Baseline Sleep Questionnaire Difficulty falling asleep: No Difficulty staying asleep?: Yes Number of arousals: 3-4 Snoring: Yes Witnessed apneas: Yes Gasping arousals: Yes Nocturia: Yes GERD: Yes Vivid dreams: No Acting out dreams: Yes (kicking and punching) Abnormal behavior in sleep: Yes Abnormal movements in sleep: Yes Morning headaches: Yes Excessive daytime sleepiness: Yes Daytime naps: Yes Restless legs: Yes (yes) Hallucinations: No Sleep paralysis: No Sleep Study: Yes (2020) CPAP: Yes
== END 2024-09-07 16:21 | disposition home or self-care (01) ==
PROVIDERS: PCP Internal Medicine; Visit Provider Physician Assistant Medical
DX: G25.81 Restless legs syndrome (principal); G47.33 Obstructive sleep apnea (adult) (pediatric); D50.8 Other iron deficiency anemias; I10 Essential (primary) hypertension; F41.1 Generalized anxiety disorder; G44.209 Tension-type headache, unspecified, not intractable
CPT/HCPCS: 99214

== ENCOUNTER 2024-09-07 14:41 | Outpatient (REF) | payer OTHER, SELFPAY ==
[2024-09-07 18:35] LABS: Iron 95 mcg/dL (45-160); Percent Iron Saturation 32 % (15-50); Total Iron Binding Capacity 296 mcg/dL (228-428); Unsaturated Iron Binding 201 ug/dL
[2024-09-07 18:49] LABS: Ferritin 93 ng/mL (20-250)
== END 2024-09-07 14:42 | disposition home or self-care (01) ==
LOC: HO.HKASLDS 14:41
PROVIDERS: PCP Internal Medicine; Visit Provider Physician Assistant Medical
DX: G47.9 Sleep disorder, unspecified (principal); R53.83 Other fatigue; G25.81 Restless legs syndrome; D50.8 Other iron deficiency anemias; G47.33 Obstructive sleep apnea (adult) (pediatric); I10 Essential (primary) hypertension; F41.1 Generalized anxiety disorder; G44.209 Tension-type headache, unspecified, not intractable
CPT/HCPCS: 36415; 82728; 83540; 99212

== ENCOUNTER 2024-10-09 14:50 | Outpatient (REF) | payer OTHER, SELFPAY ==
--- NOTE | ~2024-10-09 | XR_ITS ---
EXAMINATION: XR PARANASAL SINUSES 3 VIEWS HISTORY: R09.81 - Nasal congestion COMPARISON: There are no prior studies for comparison. FINDINGS: Five views of the paranasal sinuses are submitted. A rounded soft tissue density is seen in the region of the ostium of the right maxillary sinus, consistent with a polyp versus mucous retention cyst. The left maxillary and bilateral frontal, ethmoid, and sphenoid sinuses are well-aerated and clear. No air/fluid levels are identified. XR/XR sinus min 3V IMPRESSION: Polyp versus mucous retention cyst in the right maxillary sinus. Otherwise unremarkable examination of the paranasal sinuses. Electronically signed by: Reynaldo Burrell MD 10/10/2024 08:34 AM EDT RP
== END 2024-10-09 14:51 | disposition home or self-care (01) ==
LOC: HO.XRAY 14:50
PROVIDERS: PCP Internal Medicine; Visit Provider Internal Medicine
DX: R09.81 Nasal congestion (principal)
CPT/HCPCS: 70220

== ENCOUNTER → 2024-10-09 14:52 | Outpatient (BNV) | payer OTHER, SELFPAY | PROVIDERS: PCP Internal Medicine; Visit Provider Radiology Diagnostic Radiology | DX: R09.81 Nasal congestion (principal) | CPT/HCPCS: 70220 ==

== ENCOUNTER 2024-12-05 15:38 | Outpatient (AMB) | payer OTHER, SELFPAY ==
--- NOTE | 2024-12-05 15:58 | MHC.OFFVIS ---
Vital Signs 12/05/24 15:59 Height 5 ft 11 in Weight 207 lb BMI 28.9 BP 120/78 Blood Pressure Location Rt brachial Pulse 79 Pulse Source Pulse Oximeter Pulse Oximetry (%) 98 Oxygen Delivery Method Room Air Intake Visit Reasons: 3 mo follow up Intake Note: Patient presents follow up RLS/JUAN PABLO. Labs in chart, No-showed PSG 10/01 Blast Furnace Blower Required: Yes Blast Furnace Blower Name: Karie Accompanied by: Self / Same As Patient Allergies No Known Allergies Allergy (Verified 12/05/24 15:59) HPI Comments Details: A 53-year-old Montenegrin speaking male referred for sleep apnea evaluation by PCP. Blast Furnace Blower on IPAD 09/15/2020 HST c/w severe juan pablo supine AHI is 30.5 lateral AHI is 10.4, snoring mild with no evidence of hypoxemia. Start cpap at [id number] and monitor for compliance. Positional therapy in lateral position is recommended. He goes to bed at 8pm to about midnight 3-4 x times, he usually falls asleep in front of the tv on the couch then moves into the bedroom and has difficulty staying asleep. His notices he snores very loudly, gasps, chokes for air and wakes up coughing and this wakes up his also. He works as a painter and decorator apprentice, and was diagnosed with sleep apnea in 2020, he says he was using his machine and then he had some difficulty getting supplies and his machine never worked the same as it used to as it started to blow hot air into his face. He would like to start using it but needs some help with changing pressures and with supplies such as masks because he has anxiety it can be frustrating for him to use the face mask. He has HTN which is controlled on 3 BP medications Amlodipine, HCTZ and Metoprolol, along with GERD and he manages this with a PPI. He is trying to lose weigth and eating a more sensible diet than before as he realizes the impact of cardiovascular risks. He denies alcohol use, or cigarettes, he does use MJ for anxiety and to help him sleep 3-5 x a week. He has mild headaches daily and uses otc meds then they go away immediately he declines meds today for headaches. RLS He c/o RLS and numbness with a wierd sensation in his legs bilaterally at night and he has to get out of bed to stretch his legs from his sleep at night. He denies pins, needles, numbness or cramps. His mood is okay, though he seems very anxious. Memory is stable, however he does notice forgetting things that are not important for him. He is interested in using [facility] therapy and would like to be evaluated to see if he could be a good candidate. [facility] Medical History COVID-19 vaccine administered Asthma Colon cancer screening Vitamin D deficiency Obstructive sleep apnea Erectile dysfunction GERD (gastroesophageal reflux disease) Right renal stone HTN (hypertension) Surgical History Hx of lithotripsy Status post excision of lipoma Family History Father Stroke Alcohol abuse Myocardial infarct Mother Hypertension Sister Myocardial infarct Other Substance use disorder Social History Household Members: Significant Other Housing: Apartment Are you a primary palliative care physician to a significant other at home: No Do you presently have visiting nurse or other home services: No Alcohol intake: current Alcohol intake frequency: a few times a month Comment: once Q 2 weeks 6-8 beers Patient Tobacco Use Status: Never used Tobacco Years Smoked: marijuana, no cigarettes e-Cigarette/Vaping Use: Never Used Second Hand Smoke Exposure: No Substance Use Type: Marijuana service: No Current occupational status: employed Cognitive needs: No Hearing needs: Yes Vision needs: No Physical Exam Vital Signs: Last Vital Signs Pulse 79 12/05/24 15:59 BP 120/78 12/05/24 15:59 Pulse Ox 98 12/05/24 15:59 Oxygen Delivery Method Room Air 12/05/24 15:59 BMI result Body Mass Index 28.9 Const General: cooperative, comfortable and anxious Orientation/consciousness: patient oriented x3 HEENT Face and sinus: Yes face symmetric Eyes Pupils: Equal, round and reactive pupils present Neck Neck: Yes full ROM Resp Effort & Inspection: normal respiratory effort and able to speak in complete sentences Neuro General: patient oriented x3 and moves all extremities Cranial nerves: Yes Facial sensation intact/muscles of mastication intact, Yes Equal, round and reactive pupils present, Yes Normal facial strength present, Yes Midline tongue present, Yes Ability to bilaterally rotate head present and Yes Ability to bilaterally elevate shoulders present Gait exam (Neuro): Normal gait present Motor exam (neuro): 5/5 motor strength present throughout and Normal motor muscle tone present throughout Psych Appearance: grossly normal Thought process: Normal thought process present Thought content: Normal thought content present Results Reviewed Results Reviewed: 08/26/2020 HST c/w severe juan pablo supine AHI is 30.5 lateral AHI is 10.4, snoring mild with no evidence of hypoxemia. Start cpap at [id number] and monitor for compliance. Positional therapy in lateral position is recommended. Assessment & Plan Assessment & Plan (1) Obstructive sleep apnea: Comment: HAS MODERATELY SEVERE OBSTRUCTIVE SLEEP APNEA. HE IS TOTALLY NON COMPLIANT TO THE USE OF CPAP. EDUCATED THROUGH THE USE OF CONVEYOR TENDER. ADVISED THAT HE SHOULD USE IT EVERY NIGHT AT LEAST FOR 4-5 HOURS PER NIGHT HE SHOULD USE FLONASE 2 SPRAY IN EACH NOSTRIL EVERY EVENING. AND ALSO USE ATROVENT NASAL SPRAY ONE SPRAY IN EACH NOSTRIL BID HE IS ALSO ADVISED TO CONTINUE LOSING WEIGHT SLOWLY. Cannot tolerate CPAP (04/2024) Code(s): G47.33 - Obstructive sleep apnea (adult) (pediatric) Category: Medical (2) RLS (restless legs syndrome): Code(s): G25.81 - Restless legs syndrome Category: Medical Plan: Plan JUAN PABLO Patient continues to be non compliant due to issues with cpap machine sent new order for cpap machine today and mask fitting. Patient Education provided on Modifiable risk factors of CV events such as HTN and being compliant with cpap use. RLS / Patient is very anxious at baseline, offered dopamine agonist today will revist at next appt as he declines today. ENT [facility] consult for JUAN PABLO Start B6 200-250mg PO daily at night Start Magnesium 400mg PO daily at night F/U in 3 monhts for compliance, do not wait to start using your cpap machine if you need help call the sleep company and use you tube or credit risk officer for instructions on how to adjust settings and use machine properly. Orders: Referrals Ear/Nose/Throat Referral G47.33 - Obstructive sleep apnea (adult) (pediatric) Patient Instructions: Sleep Hygiene provided: set a scheduled bedtime and wake time to help regulate the circadian rhythm and balance the release of pituitary hormones. Sleep in a dark room, temperatures below 68 degrees, and no devices n bed. Limit caffeinated products 6 hours prior to bed, and limit fluids 2-4 hours prior to bed. Gentle night yoga, diffusing essential oils, and playing soft music can be relaxing. Coding Level of Care Code Est Pt Level 4 (73984) Diagnoses Obstructive sleep apnea G47.33 RLS (restless legs syndrome) G25.81 Time Spent (min) 30
[2024-12-05 15:59] VITALS: BP 120/78; PULSE 79; O2SAT 98; BMI 28.9
== END 2024-12-05 16:36 | disposition home or self-care (01) ==
LOC: HO.HSMS 15:40
PROVIDERS: PCP Internal Medicine; Visit Provider Physician Assistant Medical
DX: G47.33 Obstructive sleep apnea (adult) (pediatric) (principal); G25.81 Restless legs syndrome
CPT/HCPCS: 99214

== ENCOUNTER → 2024-12-05 15:38 | Outpatient (BNVA) | payer OTHER, SELFPAY | PROVIDERS: PCP Internal Medicine; Visit Provider Physician Assistant Medical | DX: G47.33 Obstructive sleep apnea (adult) (pediatric) (principal); G25.81 Restless legs syndrome; I10 Essential (primary) hypertension; Z79.899 Other long term (current) drug therapy | CPT/HCPCS: 99212 ==

== ENCOUNTER 2025-03-01 15:56 | Outpatient (AMB) | payer OTHER, SELFPAY ==
--- NOTE | 2025-03-01 15:58 | MHC.PC.OV ---
Vital Signs 03/01/25 15:59 Height 5 ft 11 in Weight 202 lb 4 oz BMI 28.2 BP 120/72 Blood Pressure Location Lt brachial Position Sitting Pulse 87 Pulse Source Pulse Oximeter Temp 97.5 F Temp Source Temporal Artery Scan Pulse Oximetry (%) 93 Oxygen Delivery Method Room Air Intake Visit Reasons: Hypertension Intake Note: Patient is here to follow up on HTN. Electric Refrigerator Preparer Required: Yes Electric Refrigerator Preparer Name: Butch ([id number]) Information Interpreted: non-clinical & clinical Environmental Lawyer: Present Accompanied by: Spouse Allergies No Known Allergies Allergy (Verified 03/01/25 15:59) Medication List - Last Reconciled 03/01/25 by Anabella Finch MD acetaminophen 1,000 mg (2 x 500 mg) PO QID PRN amlodipine 10 mg PO DAILY blood pressure test kit-large As directed clotrimazole 1% 1 appl topical BID 4 weeks fexofenadine (Yoly Allergy) 180 mg PO DAILY hydrochlorothiazide 25 mg PO QAM 90 days ibuprofen 400 mg PO Q6H PRN metoprolol succinate ER 50 mg PO DAILY 90 days mometasone 50 mcg/actuation (Nasonex 24hr Allergy) 2 sprays intranasal DAILY PRN omeprazole 20 mg PO DAILY tamsulosin 0.4 mg PO BEDTIME Tobacco use date assessed: 03/01/25 Dental Screening Dental Screen Date: 08/07/24 HPI Hypertension HPI Details [id number] [facility] History COVID-19 vaccine administered Asthma Colon cancer screening Vitamin D deficiency Obstructive sleep apnea Erectile dysfunction GERD (gastroesophageal reflux disease) Right renal stone HTN (hypertension) Surgical History Hx of lithotripsy Status post excision of lipoma Family History Father Stroke Alcohol abuse Myocardial infarct Mother Hypertension Sister Myocardial infarct Other Substance use disorder Social History Household Members: Significant Other Housing: Apartment Are you a primary continuum of care manager to a significant other at home: No Do you presently have visiting nurse or other home services: No Alcohol intake: current Alcohol intake frequency: a few times a month Comment: once Q 2 weeks 6-8 beers Patient Tobacco Use Status: Never used Tobacco Years Smoked: marijuana, no cigarettes e-Cigarette/Vaping Use: Never Used Second Hand Smoke Exposure: No Substance Use Type: Marijuana service: No Current occupational status: employed Cognitive needs: No Hearing needs: Yes Vision needs: No Questionnaire Thrive Questionnaire Date Thrive assessed: 08/25/24 I am a: Patient What is your living situation today?: I have a steady place to live Within the past 12 months, did the food you bought not last and you didn't have the money to get more?: I choose not to answer this question Within the past 12 months, did you worry whether your food would run out before you got money to buy more?: Sometimes True Do you have trouble paying for medicines?: Yes Do you have trouble getting transportation to medical appointments?: No Do you have trouble paying your heating and electricity bill?: I choose not to answer this question Do you have trouble taking care of your child, family member or friend?: No Do you have trouble with day-to-day activities such as bathing, preparing meals, shopping, managing finances, etc.?: No Are you currently unemployed and looking for a job?: No Are you interested in more education?: No Please select the resources that you would like help with: None Currently or been in a relationship where the following occur: No concerns reported THRIVE Score: 1 DASHA-7 AMB Questionnaire DASHA-7 Date DASHA - 7 assessed: 08/07/24 Source: Developed by Drs. Reynaldo Mcghee, Ivone Gill, Hans Rosado and colleagues, with an educational lamar from [employer]. Physical exam (Primary Care) Vital Signs: Last Vital Signs Temp 97.5 F 03/01/25 15:59 Pulse 87 03/01/25 15:59 BP 120/72 03/01/25 15:59 Pulse Ox 93 03/01/25 15:59 Oxygen Delivery Method Room Air 03/01/25 15:59 BMI result Body Mass Index 28.2 Tobacco/Smoking Status: Tobacco use Status Tobacco use date assessed 03/01/25 03/01/25 16:06 Patient Tobacco Use Status Never used Tobacco 03/01/25 16:06 e-Cigarette/Vaping Use Never Used 03/01/25 16:06 Thrive Assessment: Date of Thrive Assessment Date Thrive assessed 08/25/24 03/01/25 16:06 Currently or been in a relationship where the following occur: No concerns reported Const General: alert; No acute distress Eyes Conjunctivae: conjunctivae normal Resp Auscultation: clear to auscultation bilaterally Cardio Rate: regular rate Rhythm: regular rhythm GI Inspection: Yes normal to inspection Extrem General: Yes normal to inspection and No edema Coding Level of Care Code Est Pt Level 4 (79260) Complex EM visit Add On G2211 Diagnoses Nasal congestion R09.81 Gastroesophageal reflux disease without esophagitis K21.9 Esophagitis presence: without esophagitis Benign prostatic hyperplasia with urinary frequency N40.1; R35.0 Lower urinary tract symptom presence: symptoms present Lower urinary tract symptom detail: urinary frequency Mild intermittent asthma without complication J45.20 Asthma severity: mild Asthma persistence: intermittent Asthma complication type: uncomplicated Obstructive sleep apnea G47.33 Essential hypertension I10 Hypertension type: essential hypertension Hypercholesterolemia E78.00 Retention cyst of nasal sinus J34.1 Ganglion cyst M67.40 Actinic keratoses L57.0 Erectile dysfunction N52.9 Assessment & Plan Assessment & Plan (1) Nasal congestion: Comment: Retention cyst mucous September 2024 Code(s): R09.81 - Nasal congestion Category: Medical Plan: Patient has been referred to ENT. (2) GERD (gastroesophageal reflux disease): Code(s): K21.9 - Gastro-esophageal reflux disease without esophagitis Category: Medical Qualifiers: Esophagitis presence: without esophagitis Qualified Code(s): K21.9 - Gastro-esophageal reflux disease without esophagitis Plan: Avoid the foods that causes that usually spicy foods, tomato products, juices, coffee, soda and foods that your sensitive to. After eating do not lie down, allow 3-4 hours before in lie down. And keep the head of bed above 30 degrees to avoid the acid from going up. (3) BPH (benign prostatic hyperplasia): Code(s): N40.0 - Benign prostatic hyperplasia without lower urinary tract symptoms Category: Medical Qualifiers: Lower urinary tract symptom presence: symptoms present Lower urinary tract symptom detail: urinary frequency Qualified Code(s): N40.1 - Benign prostatic hyperplasia with lower urinary tract symptoms; R35.0 - Frequency of micturition Plan: Patient on tamsulosin (4) Asthma: Comment: MILD INTERMITTENT . TX CONT. TO USE ALBUTEROL 2 PUFFS Q 6 HRS PRN Code(s): J45.909 - Unspecified asthma, uncomplicated Category: Medical Qualifiers: Asthma severity: mild Asthma persistence: intermittent Asthma complication type: uncomplicated Qualified Code(s): J45.20 - Mild intermittent asthma, uncomplicated Plan: Stable (5) Obstructive sleep apnea: Comment: HAS MODERATELY SEVERE OBSTRUCTIVE SLEEP APNEA. HE IS TOTALLY NON COMPLIANT TO THE USE OF CPAP. EDUCATED THROUGH THE USE OF PULL SOCKET ASSEMBLER. ADVISED THAT HE SHOULD USE IT EVERY NIGHT AT LEAST FOR 4-5 HOURS PER NIGHT HE SHOULD USE FLONASE 2 SPRAY IN EACH NOSTRIL EVERY EVENING. AND ALSO USE ATROVENT NASAL SPRAY ONE SPRAY IN EACH NOSTRIL BID HE IS ALSO ADVISED TO CONTINUE LOSING WEIGHT SLOWLY. Cannot tolerate CPAP (04/2024) Code(s): G47.33 - Obstructive sleep apnea (adult) (pediatric) Category: Medical Plan: Patient was strongly advised to use the CPAP. (6) HTN (hypertension): Code(s): I10 - Essential (primary) hypertension Category: Medical Qualifiers: Hypertension type: essential hypertension Qualified Code(s): I10 - Essential (primary) hypertension Plan: Continue with blood pressure medication. Decrease salt intake and exercise on hydrochlorothiazide 25 mg once a day metoprolol 50 mg once a day amlodipine 10 mg once a day (7) Hypercholesterolemia: Code(s): E78.00 - Pure hypercholesterolemia, unspecified Category: Medical Plan: Avoid fried foods, chicken skin, eggs, butter margarine, pastries and meat. Be it pork or beef they have a lot of cholesterol LDL goal of less than 130 and triglyceride of less than 150 (8) Retention cyst of nasal sinus: Code(s): J34.1 - Cyst and mucocele of nose and nasal sinus Category: Medical (9) Ganglion cyst: Comment: L wrist Code(s): M67.40 - Ganglion, unspecified site Category: Medical (10) Actinic keratoses: Comment: left leg Code(s): L57.0 - Actinic keratosis Category: Medical (11) Erectile dysfunction: Code(s): N52.9 - Male erectile dysfunction, unspecified Category: Medical Plan History of Present Illness The patient is a 54-year-old male presenting for a follow-up visit. The patient has a history of hypertension, managed with hydrochlorothiazide, metoprolol, and amlodipine. He also has gastroesophageal reflux disease, obstructive sleep apnea, benign prostatic hyperplasia, asthma, and hypercholesterolemia. The patient follows up with neurology for sleep apnea and has been advised to use CPAP regularly. He was also advised to use Flonase for congestion and has been referred to an ENT specialist for further evaluation of a retention cyst in the right maxillary sinus. In September, sinus x-rays showed a polypous mucous retention cyst in the right maxillary sinus. The patient has been advised to use nasal spray to help reduce the size of the cyst. The patient reports a ganglion cyst on the left wrist, which causes intermittent pain and swelling. He has been informed that surgical removal is an option if the cyst becomes problematic, although it may recur. 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 An x-ray has been suggested to assess the severity of the arthritis. Health Maintenance - Colonoscopy last performed in 2020 - Advised to continue weight loss and maintain a healthy diet - Recommended shingles vaccination, available at pharmacies Social History - Occupation: [employer], which may contribute to shoulder pain Review of Systems - Respiratory: Reports congestion, denies cough or wheezing - Musculoskeletal: Reports bilateral shoulder pain, intermittent wrist pain - Cardiovascular: Denies chest pain or palpitations Physical Exam - Cardiovascular: Regular rate and rhythm - Respiratory: Clear to auscultation bilaterally Results - Labs: Normal blood count, electrolytes, renal function, blood sugar, iron, liver function, LDL 87, PSA, B12, folic acid, thyroid all within normal limits - Imaging: Sinus x-rays in September showed polypous mucous retention cyst in the right maxillary sinus Plan The patient is advised to continue using CPAP regularly for obstructive sleep apnea and to follow up with neurology as needed. Flonase is recommended for nasal congestion, and the patient should continue with the ENT referral for further evaluation of the sinus cyst. For hypertension, the patient is to continue current medications: hydrochlorothiazide, metoprolol, and amlodipine. The patient should maintain a healthy diet and exercise regimen to aid in weight loss and overall cardiovascular health. The ganglion cyst on the left wrist will be monitored, with surgical intervention considered if symptoms worsen. Shoulder pain, likely due to arthritis, may require an x-ray for further assessment, and the patient is encouraged to manage occupational strain. The patient is informed about the availability of the shingles vaccine at pharmacies and encouraged to consider vaccination. Patient was informed and verbally consented to the use of an ambient scribe for clinic note documentation during this visit. Discussion Notes I discussed with the patient the importance of using CPAP for sleep apnea management and the potential cardiovascular benefits. We reviewed the use of Flonase for nasal congestion and the need for ENT follow-up for the sinus cyst. I advised the patient to continue his current hypertension medications and emphasized the importance of lifestyle modifications for cardiovascular health. We also discussed the management of the ganglion cyst and potential surgical options if necessary. The patient was informed about the shingles vaccine and its availability at pharmacies, and I encouraged him to consider vaccination. Patient Instructions - Use CPAP machine regularly for sleep apnea. - Use Flonase as directed for nasal congestion. - Follow up with ENT for sinus cyst evaluation. - Continue taking hypertension medications as prescribed. - Maintain a healthy diet and exercise regularly. - Monitor ganglion cyst on wrist; consider surgery if symptoms worsen. - Consider getting the shingles vaccine at a pharmacy. Orders: Referrals Dermatology Referral L57.0 - Actinic keratosis Medications: New mometasone 50 mcg/actuation (Nasonex 24hr Allergy) administer into each nostril 2 sprays intranasal DAILY PRN 17 grams 4RF nasal congestion J34.1 - Cyst and mucocele of nose and nasal sinus sildenafil (Viagra) administer 30 minutes to 4 hours before activity 100 mg PO DAILY PRN 14 tabs 3RF sexual activity N52.9 - Male erectile dysfunction, unspecified Discontinued fluticasone propionate 50 mcg/actuation (Flonase Allergy Relief) administer into each nostril Discontinued Reason: Doctor's Order 2 sprays intranasal DAILY 16 grams 0RF
[2025-03-01 15:59] VITALS: BP 120/72; PULSE 87; TEMP 36.4; O2SAT 93; BMI 28.2
== END 2025-03-01 16:36 | disposition home or self-care (01) ==
LOC: HO.HMCH 15:57
PROVIDERS: PCP Internal Medicine; Visit Provider Internal Medicine
DX: R09.81 Nasal congestion (principal); K21.9 Gastro-esophageal reflux disease without esophagitis; N40.1 Benign prostatic hyperplasia with lower urinary tract symptoms; R35.0 Frequency of micturition; J45.20 Mild intermittent asthma, uncomplicated; G47.33 Obstructive sleep apnea (adult) (pediatric); I10 Essential (primary) hypertension; E78.00 Pure hypercholesterolemia, unspecified; J34.1 Cyst and mucocele of nose and nasal sinus; M67.40 Ganglion, unspecified site; L57.0 Actinic keratosis; N52.9 Male erectile dysfunction, unspecified

== ENCOUNTER → 2025-03-01 15:56 | Outpatient (BNVA) | payer OTHER, SELFPAY | PROVIDERS: PCP Internal Medicine; Visit Provider Internal Medicine | DX: I10 Essential (primary) hypertension (principal); R09.81 Nasal congestion; K21.9 Gastro-esophageal reflux disease without esophagitis; N40.1 Benign prostatic hyperplasia with lower urinary tract symptoms; R35.0 Frequency of micturition; J45.20 Mild intermittent asthma, uncomplicated; G47.33 Obstructive sleep apnea (adult) (pediatric); E78.00 Pure hypercholesterolemia, unspecified; J34.1 Cyst and mucocele of nose and nasal sinus; L57.0 Actinic keratosis; N52.9 Male erectile dysfunction, unspecified; Z79.899 Other long term (current) drug therapy; Z99.89 Dependence on other enabling machines and devices; M67.432 Ganglion, left wrist | CPT/HCPCS: 99212 ==

== ENCOUNTER 2025-03-05 15:13 | Outpatient (AMB) | payer OTHER, SELFPAY ==
--- NOTE | 2025-03-05 15:32 | A.OFFVIS_ITS ---
Vital Signs 03/05/25 15:33 Height 5 ft 11 in Weight 202 lb 4 oz BMI 28.2 BP 128/86 Blood Pressure Location Rt brachial Position Sitting Pulse 75 Pulse Source Pulse Oximeter Pulse Oximetry (%) 95 Oxygen Delivery Method Room Air Intake Visit Reasons: 3mon follow-up Intake Note: Patient presents follow up JUAN PABLO/RLS. No Compliance(last used 08/05/24). Patient needs to call [facility] to set up appointment to get machine. Motion Graphics Designer Required: Yes Motion Graphics Designer Language: Physician Recruiter Services: Motion Graphics Designer Present Motion Graphics Designer Name: Puma [id number] Information Interpreted: non-clinical & clinical Accompanied by: Spouse Allergies No Known Allergies Allergy (Verified 03/05/25 15:36) HPI Comments Details: A 54-year-old Kiswahili speaking male presents for an evaluation of JUAN PABLO, he is referred to us by his PCP. His Ryne is here and helps with history. Motion Graphics Designer on IPAD 09/15/2020 HST c/w severe juan pablo AHI is 30.5/hr in suppine position and oxygen nadirs to 84% with mild snoring and no evidence of hypoxemia. Start cpap at [id number]- [id number] and monitor for compliance. 09/2024 Xray imagining patient has r. maxillary sinus with polyps, will send for ENT evaluation. He goes to bed from 8-11pm and falls asleep in front of the tv on the couch then moves into the bedroom. He snores very loudly, gasps, chokes for air and wakes up coughing. His also wakes up as he c/o dry mouth and discomfort due to the mask. He works as a spray painter helper, and was diagnosed with severe JUAN PABLO in 2020. He says he was using his machine and then he had some difficulty getting supplies, due to mask being uncomfortable. Then he noticed the machine never worked the same, as it started to blow hot air into his face. He would like to start using it but needs some help with changing the pressures and also with getting the correct supplies. He has HTN, controlled on 3 BP medications Amlodipine, HCTZ and Metoprolol. He manages the GERD symptoms with along with a PPI and dietary changes. He denies alcohol use, or cigarettes. He smokes MJ due to anxiety and it helps him sleep at night. His mood is anxious. He wants to start using the cpap machine as he now understands the cognitive deficits due to sleep apnea. He c/o RLS symptoms with numbness, tingling and an uncomfortable sensation in his legs bilaterally at night. He has to get out of bed to stretch his legs. REPLACED BY [facility] Medical History COVID-19 vaccine administered Asthma Colon cancer screening Vitamin D deficiency Obstructive sleep apnea Erectile dysfunction GERD (gastroesophageal reflux disease) Right renal stone HTN (hypertension) Surgical History Hx of lithotripsy Status post excision of lipoma Family History Father Stroke Alcohol abuse Myocardial infarct Mother Hypertension Sister Myocardial infarct Other Substance use disorder Social History Household Members: Significant Other Housing: Apartment Are you a primary director of critical care to a significant other at home: No Do you presently have visiting nurse or other home services: No Alcohol intake: current Alcohol intake frequency: a few times a month Comment: once Q 2 weeks 6-8 beers Patient Tobacco Use Status: Never used Tobacco Years Smoked: marijuana, no cigarettes e-Cigarette/Vaping Use: Never Used Second Hand Smoke Exposure: No Substance Use Type: Marijuana service: No Current occupational status: employed Cognitive needs: No Hearing needs: Yes Vision needs: No Physical Exam Vital Signs: Last Vital Signs Pulse 75 03/05/25 15:33 BP 128/86 03/05/25 15:33 Pulse Ox 95 03/05/25 15:33 Oxygen Delivery Method Room Air 03/05/25 15:33 BMI result Body Mass Index 28.2 Const General: cooperative, comfortable and anxious Orientation/consciousness: patient oriented x3 HEENT Face and sinus: Yes face symmetric Eyes Pupils: Equal, round and reactive pupils present Neck Neck: Yes full ROM Resp Effort & Inspection: normal respiratory effort and able to speak in complete sentences Neuro General: patient oriented x3 and moves all extremities Cranial nerves: Yes Facial sensation intact/muscles of mastication intact, Yes Equal, round and reactive pupils present, Yes Normal facial strength present, Yes Midline tongue present, Yes Ability to bilaterally rotate head present and Yes Ability to bilaterally elevate shoulders present Gait exam (Neuro): Normal gait present Motor exam (neuro): 5/5 motor strength present throughout and Normal motor muscle tone present throughout Psych Appearance: grossly normal Speech and movement: Other speech and movement exam findings present (Psych) (language barrier) Thought process: Normal thought process present Thought content: Normal thought content present Results Reviewed Results Reviewed: 2024 FINDINGS: Five views of the paranasal sinuses are submitted. A rounded soft tissue density is seen in the region of the ostium of the right maxillary sinus, consistent with a polyp versus mucous retention cyst. The left maxillary and bilateral frontal, ethmoid, and sphenoid sinuses are well-aerated and clear. No air/fluid levels are identified. Assessment & Plan Assessment & Plan (1) Obstructive sleep apnea: Comment: HAS MODERATELY SEVERE OBSTRUCTIVE SLEEP APNEA. HE IS TOTALLY NON COMPLIANT TO THE USE OF CPAP. EDUCATED THROUGH THE USE OF ELECTROLYTIC ETCHER. ADVISED THAT HE SHOULD USE IT EVERY NIGHT AT LEAST FOR 4-5 HOURS PER NIGHT HE SHOULD USE FLONASE 2 SPRAY IN EACH NOSTRIL EVERY EVENING. AND ALSO USE ATROVENT NASAL SPRAY ONE SPRAY IN EACH NOSTRIL BID HE IS ALSO ADVISED TO CONTINUE LOSING WEIGHT SLOWLY. Cannot tolerate CPAP (04/2024) Code(s): G47.33 - Obstructive sleep apnea (adult) (pediatric) Category: Medical (2) Generalized anxiety disorder: Comment: SSRI Sertraline Code(s): F41.1 - Generalized anxiety disorder Category: Medical (3) Right shoulder pain: Code(s): M25.511 - Pain in right shoulder Category: Medical Qualifiers: Chronicity: chronic Qualified Code(s): M25.511 - Pain in right shoulder; G89.29 - Other chronic pain (4) Right nasal polyps: Comment: ENT eval Code(s): J33.9 - Nasal polyp, unspecified Category: Medical (5) Obstructive sleep apnea: Comment: HAS MODERATELY SEVERE OBSTRUCTIVE SLEEP APNEA. HE IS TOTALLY NON COMPLIANT TO THE USE OF CPAP. EDUCATED THROUGH THE USE OF ELECTROLYTIC ETCHER. ADVISED THAT HE SHOULD USE IT EVERY NIGHT AT LEAST FOR 4-5 HOURS PER NIGHT HE SHOULD USE FLONASE 2 SPRAY IN EACH NOSTRIL EVERY EVENING. AND ALSO USE ATROVENT NASAL SPRAY ONE SPRAY IN EACH NOSTRIL BID HE IS ALSO ADVISED TO CONTINUE LOSING WEIGHT SLOWLY. Cannot tolerate CPAP (04/2024) Code(s): G47.33 - Obstructive sleep apnea (adult) (pediatric) Category: Medical (6) RLS (restless legs syndrome): Comment: declines DA today will monitor Code(s): G25.81 - Restless legs syndrome Category: Medical Plan: Plan JUAN PABLO Patient continues to be non compliant due to issues with cpap machine sent new order for cpap machine today and mask fitting. Patient Education provided on modifiable risk factors of CV events such as HTN and being compliant with cpap use. PT for R. Shoulder pain RLS will monitor, offered dopamine agonist today will revisit at next appt as he declines today. Dry mouth due to temperatures of cpap machine, adjust temperatures in settings. Do not adjust pressures yourself. DASHA SSRI 25mg po daily at breakfast, will monitor for 3 months. Will consider [facility] consult for JUAN PABLO if he continues to be non-compliant after mask fitting and adjusting pressures. F/U in 3 months, do not wait, call the sleep company or office for assistance. Orders: Orders RT PSG in-lab sleep titration Today G47.33 - Obstructive sleep apnea (adult) (pediatric) PT Evaluation and Treatment Today G2.81 - Restless legs syndrome, M25.511 - Pain in right shoulder Referrals Ear/Nose/Throat Referral G47.33 - Obstructive sleep apnea (adult) (pediatric), J33.9 - Nasal polyp, unspecified Medications: New sertraline 25 mg PO DAILY 90 tabs 0RF anxiety 3 months MDD 25mg F41.1 - Generalized anxiety disorder Patient Instructions: Please complete the following fasting labs to rule out deficiencies. CBC/CMP/ B12/ Vit D/ TSH/ Homocysteine and MMA/ Ferritin. Coding Level of Care Code Est Pt Level 4 (11690) Complex EM visit Add On G2211 Diagnoses Obstructive sleep apnea G47.33 Generalized anxiety disorder F41.1 Chronic right shoulder pain M25.511; G89.29 Chronicity: chronic Right nasal polyps J33.9 RLS (restless legs syndrome) G25.81
[2025-03-05 15:33] VITALS: BP 128/86; PULSE 75; O2SAT 95; BMI 28.2
== END 2025-03-05 16:17 | disposition home or self-care (01) ==
LOC: HO.HSMS 15:13
PROVIDERS: PCP Internal Medicine; Visit Provider Physician Assistant Medical
DX: G47.33 Obstructive sleep apnea (adult) (pediatric) (principal); F41.1 Generalized anxiety disorder; M25.511 Pain in right shoulder; G89.29 Other chronic pain; J33.9 Nasal polyp, unspecified; G25.81 Restless legs syndrome
CPT/HCPCS: 99214

== ENCOUNTER → 2025-03-05 15:13 | Outpatient (BNVA) | payer OTHER, SELFPAY | PROVIDERS: PCP Internal Medicine; Visit Provider Physician Assistant Medical | DX: G47.33 Obstructive sleep apnea (adult) (pediatric) (principal); F41.1 Generalized anxiety disorder; M25.511 Pain in right shoulder; G89.29 Other chronic pain; J33.9 Nasal polyp, unspecified; G25.81 Restless legs syndrome | CPT/HCPCS: 99212 ==